=== PATIENT | female | born 1960 | race Caucasian/White ===

== ENCOUNTER → 2016-09-15 | Outpatient (CLI) | payer OTHER ==
[2016-09-15 10:26] LABS: ALT 32 U/L (9-52); AST 21 U/L (14-36); Alkaline Phosphatase 113 U/L (38-126); Anion Gap 12 mmol/L; Blood Urea Nitrogen 11 mg/dL (7-17); Calcium 9.8 mg/dL (8.4-10.2); Carbon Dioxide 28 mmol/L (22-30); Chloride 103 mmol/L (98-107); Cholesterol 158 mg/dL (<200); Glucose 131 mg/dL (74-99); HDL Cholesterol 60 mg/dL (40-60); Non-African American GFR(MDRD) >60 (>60 ml/min/1.73 sqM); Potassium 4.5 mmol/L (3.5-5.1); Sodium 143 mmol/L (137-145); Total Bilirubin 0.5 mg/dL (0.2-1.3); Total Protein 6.9 g/dL (6.3-8.2); Triglycerides 195 mg/dL (<150)
[2016-09-15 10:50] LABS: Hemoglobin A1C 6.3 % (4.2-6.1)
== END | disposition home or self-care (01) ==
LOC: LABWHC1 09:35
PROVIDERS: ATTEND Psychiatry & Neurology Psychiatry
DX: E11.9 Type 2 diabetes mellitus without complications (principal)
CPT/HCPCS: 36415; 80053; 80061; 82043; 83036; 84439; 84443

== ENCOUNTER → 2017-03-18 | Outpatient (CLI) | payer OTHER ==
[2017-03-18 18:27] LABS: ALT 32 U/L (9-52); AST 21 U/L (14-36); Alkaline Phosphatase 111 U/L (38-126); Anion Gap 13 mmol/L; Blood Urea Nitrogen 13 mg/dL (7-17); Calcium 9.7 mg/dL (8.4-10.2); Carbon Dioxide 25 mmol/L (22-30); Chloride 105 mmol/L (98-107); Cholesterol 186 mg/dL (<200); Glucose 82 mg/dL (74-99); HDL Cholesterol 57 mg/dL (40-60); Non-African American GFR(MDRD) >60 (>60 ml/min/1.73 sqM); Potassium 4.5 mmol/L (3.5-5.1); Sodium 143 mmol/L (137-145); Total Bilirubin 0.3 mg/dL (0.2-1.3); Total Protein 6.8 g/dL (6.3-8.2); Triglycerides 235 mg/dL (<150)
[2017-03-18 21:05] LABS: Hemoglobin A1C 6.1 % (4.2-6.1)
== END ==
LOC: MMGSC 10:15
PROVIDERS: ATTEND Family Medicine
DX: E11.9 Type 2 diabetes mellitus without complications (principal); E03.9 Hypothyroidism, unspecified; E78.5 Hyperlipidemia, unspecified
CPT/HCPCS: 36415; 80053; 80061; 82043; 82570; 83036; 84439; 84443; 84480

== ENCOUNTER → 2017-09-10 | Outpatient (CLI) | payer OTHER ==
[2017-09-10 20:03] LABS: Basophils # (A) 0.1 k/uL (0-0.2); Basophils % (A) 1 %; Eosinophils # (A) 0.5 k/uL (0-0.7); Eosinophils % (A) 5 %; HCT 40.9 % (34.0-46.0); HGB 13.1 gm/dL (11.4-16.0); Lymphocytes # (A) 3.8 k/uL (1.0-4.8); Lymphocytes % (A) 39 %; MCH 28.2 pg (25.0-35.0); MCHC 32.1 g/dL (31.0-37.0); MCV 88.1 fL (80.0-100.0); Mean Platelet Volume 7.9; Monocytes # (A) 0.4 k/uL (0-1.0); Monocytes % (A) 4 %; Neutrophils # (A) 4.9 k/uL (1.3-7.7); Neutrophils % (A) 50 %; Platelet Count 486 k/uL (150-450); RBC 4.65 m/uL (3.80-5.40); RDW 13.9 % (11.5-15.5); WBC 9.7 k/uL (3.8-10.6)
[2017-09-10 20:21] LABS: ALT 35 U/L (9-52); AST 23 U/L (14-36); Albumin 4.3 g/dL (3.5-5.0); Alkaline Phosphatase 124 U/L (38-126); Anion Gap 12 mmol/L; Blood Urea Nitrogen 17 mg/dL (7-17); Calcium 9.7 mg/dL (8.4-10.2); Carbon Dioxide 27 mmol/L (22-30); Chloride 104 mmol/L (98-107); Cholesterol 180 mg/dL (<200); Glucose 105 mg/dL (74-99); HDL Cholesterol 58 mg/dL (40-60); LDL Cholesterol,Calculated 82 mg/dL (0-99); Potassium 5.1 mmol/L (3.5-5.1); Sodium 143 mmol/L (137-145); Total Bilirubin 0.3 mg/dL (0.2-1.3); Triglycerides 198 mg/dL (<150)
[2017-09-10 20:29] LABS: T4, Free (Free Thyroxine) 1.16 ng/dL (0.78-2.19)
[2017-09-11 02:16] LABS: Hemoglobin A1C 6.3 % (4.0-6.0)
== END | disposition home or self-care (01) ==
LOC: MMGSC 11:45
PROVIDERS: ATTEND Family Medicine
DX: E03.9 Hypothyroidism, unspecified (principal); E78.5 Hyperlipidemia, unspecified; E11.9 Type 2 diabetes mellitus without complications
CPT/HCPCS: 36415; 80053; 80061; 83036; 84439; 84443; 85025

== ENCOUNTER → 2017-09-16 | Outpatient (CLI) | payer OTHER | END | disposition home or self-care (01) | LOC: MMGSC 10:48 | PROVIDERS: ATTEND Family Medicine | DX: E11.9 Type 2 diabetes mellitus without complications (principal) | CPT/HCPCS: 82043; 82570 ==

== ENCOUNTER → 2020-07-03 | Outpatient (CLI) | payer BC ==
--- NOTE | 2020-07-03 14:47 | US ---
EXAMINATION TYPE: US kidneys/renal and bladder DATE OF EXAM: 07/03/2020 COMPARISON: NONE CLINICAL HISTORY: 59-year-old female R33.9 Urinary retention. TECHNIQUE: Multiple sonographic images of the kidneys and bladder are obtained. FINDINGS: EXAM MEASUREMENTS: Right Kidney: 11.4 x 4.7 x 3.4 cm Left Kidney: 12.0 x 4.3 x5.3 cm Post Void Residual Volume: 7.4 mL Right Kidney: No hydronephrosis. Left Kidney: Multiple echogenic parallel linear calcifications suggest vessel wall calcifications. No hydronephrosis. Bladder: well distended with mild circumferential wall thickening. Bilateral Jets seen: Yes Normal Post Void Residual: yes Incidental echogenic liver. IMPRESSION: 1. No hydronephrosis. 2. Circumferential bladder wall thickening. Correlate to exclude cystitis. 3. Incidental hepatic steatosis. 4. Increased postvoid bladder volume of 7 mL falls within acceptable limits.
== END | disposition home or self-care (01) ==
LOC: RADUSWWP 13:36
PROVIDERS: ATTEND Family Medicine
DX: N28.9 Disorder of kidney and ureter, unspecified (principal)
CPT/HCPCS: 76770

== ENCOUNTER → 2020-07-17 | Outpatient (CLI) | payer BC ==
--- NOTE | 2020-07-30 12:24 | EM ---
EVENT MONITOR EVENT MONITOR: Patient was monitored between the July 17 and July 24, 2020. The rhythm strip revealed sinus mechanism with normal conduction. There was no evidence of atrial fibrillation. No evidence of ventricular ectopic activity or pauses. PAWEL / BLOSSOMN: [id number] /
== END | disposition home or self-care (01) ==
LOC: RADECHMAIN 12:20
PROVIDERS: ATTEND Family Medicine
DX: R00.2 Palpitations (principal)
CPT/HCPCS: 93270

== ENCOUNTER → 2020-07-18 | Outpatient (CLI) | payer BC ==
--- NOTE | 2020-07-19 09:27 | MM ---
Reason for exam: screening (asymptomatic). Last mammogram was performed 9 years and 3 months ago. History: Patient is postmenopausal. Took hormonal contraceptives for 1 year beginning at age 18. Physical Findings: A clinical breast exam by your physician is recommended on an annual basis and results should be correlated with mammographic findings. MG Screening Mammo w CAD Bilateral CC and MLO view(s) were taken. Prior study comparison: April 17, 2011, [facility] DIGITAL RIGHT MAMMOGRAM w/CAD. April 10, 2011, bilateral digital screening mammo w/CAD. There are scattered fibroglandular densities. No significant changes when compared with prior studies. ASSESSMENT: Benign, BI-RAD 2 RECOMMENDATION: Routine screening mammogram of both breasts in 1 year.
== END | disposition home or self-care (01) ==
LOC: RADMAMWWP 15:10
PROVIDERS: ATTEND Family Medicine
DX: Z12.31 Encounter for screening mammogram for malignant neoplasm of breast (principal)
CPT/HCPCS: 77067

== ENCOUNTER 2021-05-29 07:13 | Day surgery (SDC) | payer BC ==
[~2021-05-29 07:13] MED LIST: LACTATED RINGERS 1,000 ML IV SCH; LIDOCAINE 1% (10MG/ML) FOR IV START INTRADERMA PRN
[2021-05-29 07:38] VITALS: TEMP 97
[2021-05-29 07:46] LABS: Glucose,Whole Blood 158 mg/dL (75-99)
[2021-05-29] MEDS ORDERED: PROPOFOL 10 MG/ML 20 ML VIAL IV ONE (07:57)
[2021-05-29] MEDS ORDERED: LIDOCAINE 1% INJ 10MG/ML (20 ML MDV) ONE (07:57)
--- NOTE | 2021-05-29 08:25 | P.PCN ---
Date of Procedure: 05/29/21 Procedure(s) Performed: BRIEF HISTORY: Patient is a 60-year-old pleasant female scheduled for an elective colonoscopy as a part of screening for colon rectal neoplasia. Her last colonoscopy was 10 years ago. PROCEDURE PERFORMED: Colonoscopy with biopsy. PREOPERATIVE DIAGNOSIS: Screening for colon cancer. IV sedation per Anesthesia. PROCEDURE: After informed consent was obtained, the patient, was brought into the endoscopy unit. IV sedation was administered by Anesthesia under continuous monitoring. Digital rectal examination was normal. Initially the Olympus CF-160 flexible video colonoscope was then inserted in the rectum, gradually advanced into the cecum without any difficulty. Careful examination was performed as the scope was gradually being withdrawn. Ileocecal valve and the appendiceal orifice were visualized and appeared normal. Prep was excellent. Mucosa of the cecum, ascending colon, transverse colon, appeared normal. In the descending colon there was a 3-4 mm sessile polyp that was removed by cold biopsy. Rest of the descending colon, sigmoid colon, and rectum appeared normal. Retroflexion was performed in the rectum and no lesions were seen. The patient tolerated the procedure well. IMPRESSION: 3-4 mm descending colon polyp status post cold biopsy Rest of the colon appeared normal RECOMMENDATIONS: Findings of this examination were discussed with the patient as well as a family. She was advised to follow with the biopsy results. If the biopsies adenoma she can have a repeat colonoscopy in 5 years.
[2021-05-29 08:29] VITALS: RESP 16
[2021-05-29 08:41] VITALS: BP 112/77; PULSE 72
== END 2021-05-29 08:59 | disposition home or self-care (01) ==
LOC: ORWHC2ENDO 07:13
PROVIDERS: ATTEND Internal Medicine Gastroenterology
DX: Z12.11 Encounter for screening for malignant neoplasm of colon (principal); D12.4 Benign neoplasm of descending colon; E78.5 Hyperlipidemia, unspecified; E11.9 Type 2 diabetes mellitus without complications; E03.9 Hypothyroidism, unspecified; F98.8 Other specified behavioral and emotional disorders with onset usually occurring in childhood and adolescence; F32.9 Major depressive disorder, single episode, unspecified; Z79.890 Hormone replacement therapy; Z79.84 Long term (current) use of oral hypoglycemic drugs; Z79.899 Other long term (current) drug therapy
CPT/HCPCS: 45380; J2001; J2704; 88305

== ENCOUNTER → 2021-06-17 | Outpatient (CLI) | payer BC | END | disposition home or self-care (01) | LOC: LABWHC1 14:30 | PROVIDERS: ATTEND Family Medicine | DX: U07.1 COVID-19 (principal); R51.9 Headache, unspecified; R50.9 Fever, unspecified; R05.9 Cough, unspecified | CPT/HCPCS: U0003; U0005 ==

== ENCOUNTER 2021-06-23 18:50 | Inpatient (IN) | payer BC ==
--- NOTE | 2021-06-23 20:40 | XR ---
EXAMINATION TYPE: XR chest 2V DATE OF EXAM: 06/23/2021 COMPARISON: NONE HISTORY: Short of breath. Fever. TECHNIQUE: 2 views FINDINGS: There is patchy peripheral bilateral pulmonary interstitial and airspace infiltrates. Heart and mediastinum are normal. There is no pleural effusion. There are no hilar masses. IMPRESSION: Bilateral pneumonia. Normal heart.
[2021-06-23] MEDS ORDERED: ALBUTEROL HFA INHALER INHALATION STA (22:08)
[2021-06-23] MEDS ORDERED: ACETAMINOPHEN TAB 500 MG TAB PO STA (22:08)
[2021-06-23] MEDS ORDERED: DEXAMETHASONE SOD PHOSPHATE 10 MG/ML 1 ML VIAL IVP STA (22:09)
[2021-06-23] MEDS ORDERED: KETOROLAC 15 MG/ML 1 ML VIAL IVP STA (22:09)
[2021-06-23] MEDS ORDERED: SODIUM CHLORIDE 0.9% 1,000 ML IV STA ×2 (22:09)
--- NOTE | 2021-06-23 22:10 | ED ---
Recheck HPI - General Chief Complaint: Shortness of Breath Stated Complaint: covid+/sob/fever/diarrhea Time Seen by Provider: 06/23/21 22:06 Source: patient, RN notes reviewed, old records reviewed Mode of arrival: ambulatory Limitations: no limitations - History of Present Illness Initial Comments: This is a 60-year-old female to the emergency department breanna. Patient presents today for evaluation regards to coronavirus. Patient does suffer from asthma high blood pressure. Patient states she was diagnosed with coronavirus on Thursday 10 days currently. Patient has been on quarantined, was taken home pulse ox at home and noticed it started to trend lower. Patient states she does admit to shortness of breath especially with exertion. No chest MD Complaint: abnormal lab (Positive for coronavirus) -: days(s) (10) Returns Today for: Called Because of Abnormal Lab/Test, persistent/worsening pain related to initial visit, other (Worsening shortness of breath) Symptoms Since Prior Visit: worsening pain, fever Context: called for abnormal lab result, ran out of medication, other (Increasing shortness of breath) Associated Symptoms: fever, chills Treatments Prior to Arrival: other (none) - Related Data Home Medications Medication Instructions Recorded Confirmed ALPRAZolam [Xanax] 0.5 mg PO BID PRN 05/27/21 05/29/21 ARIPiprazole [Abilify] 10 mg PO HS 05/27/21 05/29/21 Atorvastatin [Lipitor] 5 mg PO MOTUWETHFR 05/27/21 05/29/21 Cholecalciferol [Vitamin D3 (25 50 mcg PO DAILY 05/27/21 05/29/21 Mcg = 1000 Iu)] Cinnamon Bark [Cinnamon] 1 tab PO TID 05/27/21 05/29/21 Dextroamphetamine/Amphetamine 15 mg PO QAM 05/27/21 05/29/21 [Dextroamphetamine/Amphetamine ER 15 mg Cap] Latanoprost Ophth [Xalatan 0.005%] 1 drop BOTH EYES DAILY 05/27/21 05/29/21 Levothyroxine Sodium [Synthroid] 75 mcg PO QAM 05/27/21 05/29/21 Loratadine 10 mg PO HS 05/27/21 05/29/21 Multivitamins, Thera [Multivitamin 1 tab PO DAILY 05/27/21 05/29/21 (formulary)] Prevagen 1 tab PO DAILY 05/27/21 05/29/21 Ubidecarenone [Co Q-10] 200 mg PO DAILY 05/27/21 05/29/21 Zinc 50 mg PO DAILY 05/27/21 05/29/21 Zolpidem [Ambien] 10 mg PO HS PRN 05/27/21 05/29/21 glyBURIDE [Diabeta] 2.5 mg PO BID 05/27/21 05/29/21 metFORMIN HCL [Glucophage] 1,000 mg PO BID 05/27/21 05/29/21 Allergies Allergy/AdvReac Type Severity Reaction Status Date / Time No Known Allergies Allergy Verified 06/23/21 19:58 Review of Systems ROS Statement: Those systems with pertinent positive or pertinent negative responses have been documented in the HPI. ROS Other: All systems not noted in ROS Statement are negative. Past Medical History Past Medical History: Diabetes Mellitus, Hyperlipidemia, Thyroid Disorder Additional Past Medical History / Comment(s): ALLERGIES History of Any Multi-Drug Resistant Organisms: None Reported Past Surgical History: Appendectomy Additional Past Surgical History / Comment(s): OVARIAN CYST Past Anesthesia/Blood Transfusion Reactions: No Reported Reaction Past Psychological History: ADD/ADHD, Depression Smoking Status: Former smoker Past Alcohol Use History: Rare Past Drug Use History: None Reported - Past Family History Mother Family Medical History: No Reported History Additional Family Medical History / Comment(s): PATIENT WAS ADOPTED General Exam Limitations: no limitations General appearance: alert, in no apparent distress, anxious Head exam: Present: atraumatic, normocephalic, normal inspection Eye exam: Present: normal appearance, PERRL, EOMI. Absent: scleral icterus, conjunctival injection, periorbital swelling ENT exam: Present: normal exam, mucous membranes moist Neck exam: Present: normal inspection. Absent: tenderness, meningismus, lymphadenopathy Respiratory exam: Present: respiratory distress, accessory muscle use, decreased breath sounds, prolonged expiratory. Absent: wheezes, rales, rhonchi, stridor Cardiovascular Exam: Present: regular rate, normal rhythm, normal heart sounds. Absent: systolic murmur, diastolic murmur, rubs, gallop, clicks GI/Abdominal exam: Present: soft, normal bowel sounds. Absent: distended, tenderness, guarding, rebound, rigid Extremities exam: Present: normal inspection, full ROM, normal capillary refill. Absent: tenderness, pedal edema, joint swelling, calf tenderness Back exam: Present: normal inspection Neurological exam: Present: alert, oriented X3, CN II-XII intact Psychiatric exam: Present: normal affect, normal mood Skin exam: Present: warm, dry, intact, normal color. Absent: rash Course Vital Signs 06/23/21 06/23/21 06/23/21 19:53 20:01 22:37 Temperature 97.5 F L Pulse Rate 97 Respiratory 24 18 Rate Blood Pressure 109/73 O2 Sat by Pulse 86 L 93 L Oximetry - Reevaluation(s) Reevaluation #1: 06/23/21 22:59 Medical record is reviewed Reevaluation #2: 06/23/21 22:59 Patient continues to low have low pulse ox will not on supplemental oxygen here in the ER Reevaluation #3: 06/23/21 23:00 paatient is informed of results and questions are answered - Consultations Consultation #1: Spoke with sound who will admit this patient Medical Decision Making - Medical Decision Making 60 female to the emergency department for reevaluation of positive coronavirus test worsening shortness of breath and low oxygen today. Patient has chest x- ray showing bilateral pneumonia coronavirus pneumonia, computed tomography scan is obtained to rule out PE, patient is improving with supplemental O2 but does not maintain pulse ox without Critical Care Time Critical Care Time: Yes Total Critical Care Time: 31 Disposition Clinical Impression: Hypoxia, Coronavirus infection, Pneumonia due to COVID-19 virus Disposition: ADMITTED IP TO THIS HOSP Condition: Fair Is patient prescribed a controlled substance at d/c from ED?: No Referrals: Johanna Hahn MD [Primary Care Provider] - 1-2 days
[2021-06-23] MEDS ORDERED: NALOXONE 0.4 MG/ML 1 ML VIAL IV PRN (23:18)
[2021-06-23] MEDS ORDERED: MORPHINE SULFATE 4 MG/ML SYRINGE IV PRN (23:18)
[2021-06-23] MEDS ORDERED: ONDANSETRON 4 MG/2 ML VIAL IVP PRN (23:18)
[2021-06-23 23:51] LABS: Basophils % (A) 1 %; Eosinophils % (A) 0 %; HCT 37.8 % (34.0-46.0); HGB 12.9 gm/dL (11.4-16.0); Lymphocytes # (A) 1.7 k/uL (1.0-4.8); Lymphocytes % (A) 26 %; MCH 30.4 pg (25.0-35.0); MCV 89.3 fL (80.0-100.0); Mean Platelet Volume 7.4; Monocytes # (A) 0.1 k/uL (0-1.0); Monocytes % (A) 2 %; Neutrophils # (A) 4.5 k/uL (1.3-7.7); Neutrophils % (A) 69 %; Platelet Count 324 k/uL (150-450); RBC 4.24 m/uL (3.80-5.40); RDW 13.6 % (11.5-15.5); WBC 6.5 k/uL (3.8-10.6)
[2021-06-24 00:02] LABS: INR 0.9 (<1.2); Prothrombin Time 9.7 sec (9.0-12.0)
[2021-06-24 00:08] LABS: ALT 76 U/L (4-34); AST 113 U/L (14-36); African American GFR (CKD) >90 (>60 ml/min/1.73 sqM); Albumin 3.9 g/dL (3.5-5.0); Alkaline Phosphatase 147 U/L (38-126); Anion Gap 11 mmol/L; Blood Urea Nitrogen 15 mg/dL (7-17); Calcium 8.9 mg/dL (8.4-10.2); Carbon Dioxide 21 mmol/L (22-30); Chloride 103 mmol/L (98-107); Glucose 151 mg/dL (74-99); Magnesium 2.2 mg/dL (1.6-2.3); Non-African American GFR(CKD) >90 (>60 ml/min/1.73 sqM); Sodium 135 mmol/L (137-145); Total Bilirubin 0.5 mg/dL (0.2-1.3)
[2021-06-24 00:18] LABS: LDH 2353 U/L (313-618); Potassium 5.8 mmol/L (3.5-5.1)
[2021-06-24 00:19] LABS: C Reactive Protein 23.9 mg/dL (<1.0)
--- NOTE | 2021-06-24 00:46 | CT ---
EXAMINATION TYPE: CT angio chest DATE OF EXAM: 06/24/2021 COMPARISON: None HISTORY: pe CT DLP: 280 mGycm Automated exposure control for dose reduction was used. CONTRAST: Performed with IV Contrast, patient injected with 55ml mL of Isovue 370. There are 3-D post processed images. There is extensive groundglass peripheral pulmonary interstitial infiltrates. There is some coalescen t density small areas of both lungs. There is no pleural effusion. Heart size is normal. There is no pericardial effusion. There is some fatty infiltration of the liver. There are no hilar masses. There is 1.6 cm pretracheal lymph node. There are other mediastinal lymph nodes that measure up to 1 cm. Thoracic aorta appears intact. There is no aneurysm or dissection. The re is no evidence of filling defect in the pulmonary arteries. Thoracic spine is intact. There is no compression fracture. The ribs appear intact. IMPRESSION: No evidence of pulmonary embolism. Extensive bilateral interstitial pneumonia. Mild mediastinal adenopathy.
[2021-06-24 03:00] LABS: Basophils % (A) 0 %; Eosinophils % (A) 0 %; HCT 35.6 % (34.0-46.0); HGB 11.9 gm/dL (11.4-16.0); Lymphocytes % (A) 12 %; MCH 30.2 pg (25.0-35.0); MCHC 33.4 g/dL (31.0-37.0); MCV 90.2 fL (80.0-100.0); Mean Platelet Volume 7.3; Monocytes # (A) 0.1 k/uL (0-1.0); Monocytes % (A) 2 %; Neutrophils # (A) 6.9 k/uL (1.3-7.7); Neutrophils % (A) 84 %; Platelet Count 353 k/uL (150-450); RBC 3.95 m/uL (3.80-5.40); RDW 13.8 % (11.5-15.5); WBC 8.2 k/uL (3.8-10.6)
[2021-06-24 03:13] LABS: ALT 61 U/L (4-34); AST 80 U/L (14-36); African American GFR (CKD) >90 (>60 ml/min/1.73 sqM); Albumin 3.2 g/dL (3.5-5.0); Alkaline Phosphatase 137 U/L (38-126); Anion Gap 9 mmol/L; Blood Urea Nitrogen 15 mg/dL (7-17); Calcium 8.1 mg/dL (8.4-10.2); Carbon Dioxide 20 mmol/L (22-30); Chloride 106 mmol/L (98-107); Glucose 184 mg/dL (74-99); Non-African American GFR(CKD) >90 (>60 ml/min/1.73 sqM); Potassium 4.6 mmol/L (3.5-5.1); Sodium 135 mmol/L (137-145); Total Bilirubin 0.2 mg/dL (0.2-1.3); Total Protein 5.9 g/dL (6.3-8.2)
[2021-06-24] MEDS ORDERED: ACETAMINOPHEN TAB 325 MG TAB PO PRN (04:19)
--- NOTE | 2021-06-24 04:27 | P.HPIM ---
History of Present Illness H&P Date: 06/24/21 Chief Complaint: Hypoxemia 60-year-old female with diabetes mellitus and mild persistent asthma Patient comes in due to progressive shortness of breath and hypoxemia. She was diagnosed with Covid 10 days ago she is unvaccinated. Overall she was doing well up until recently she's been having fevers off and on with some chills and body aches however she started having progressive worsening of her coughing and some wheezing over the past few days she's been monitoring her oxygen saturation with a home pulse ox which has been within normal limits trending down into the lower 90s up until today when it was in the 80s and she was feeling short of breath. She does not recall any sick contacts. No recent travel. She otherwise denies any sore throat loss of taste or smell sensation she denies any vomiting or nausea. However she does have some episodes of diarrhea Again up until yesterday is when her oxygen saturation started trending down to lower 90s and today she was and TEDs with worsening shortness of breath especially with activity. She decided to come to the hospital for evaluation She's been self-medicating with Tylenol and Advil and using her inhalers however to not much benefit today. She does not use any home oxygen she denies any smoking or drug abuse In the ED workup showed elevated liver enzymes elevated CRP and lactate dehydrogenase CTA of the chest showed no acute PE but was positive for bilateral interstitial pneumonitis patient was started on supplemental oxygen and given a dose of dexamethasone in the ED Review of Systems Pertinent positives as noted in HPI. All other systems were reviewed and are negative Past Medical History Past Medical History: Diabetes Mellitus, Hyperlipidemia, Thyroid Disorder Additional Past Medical History / Comment(s): ALLERGIES History of Any Multi-Drug Resistant Organisms: None Reported Past Surgical History: Appendectomy Additional Past Surgical History / Comment(s): OVARIAN CYST Past Anesthesia/Blood Transfusion Reactions: No Reported Reaction Past Psychological History: ADD/ADHD, Depression Smoking Status: Former smoker Past Alcohol Use History: Rare Past Drug Use History: None Reported - Past Family History Mother Family Medical History: No Reported History Additional Family Medical History / Comment(s): PATIENT WAS ADOPTED Medications and Allergies Home Medications Medication Instructions Recorded Confirmed Type ALPRAZolam [Xanax] 0.5 mg PO DIRECTED PRN 05/27/21 06/23/21 History ARIPiprazole [Abilify] 10 mg PO HS 05/27/21 06/23/21 History Dextroamphetamine/Amphetamine 15 mg PO QAM 05/27/21 06/23/21 History [Dextroamphetamine/Amphetamine ER 15 mg Cap] Latanoprost Ophth [Xalatan 0.005%] 1 drop BOTH EYES HS 05/27/21 06/23/21 History Levothyroxine Sodium [Synthroid] 75 mcg PO MOTUWETHFR 05/27/21 06/23/21 History Loratadine 10 mg PO HS 05/27/21 06/23/21 History Ubidecarenone [Co Q-10] 100 mg PO DAILY 05/27/21 06/23/21 History Zolpidem [Ambien] 10 mg PO HS PRN 05/27/21 06/23/21 History glyBURIDE [Diabeta] 5 mg PO BID 05/27/21 06/23/21 History metFORMIN HCL [Glucophage] 1,000 mg PO DAILY 05/27/21 06/23/21 History Atorvastatin [Lipitor] 10 mg PO HS 06/23/21 06/23/21 History Cholecalciferol [Vitamin D3 (25 50 mcg PO DAILY 06/23/21 06/23/21 History Mcg = 1000 Iu)] DULoxetine HCL [Cymbalta] 30 mg PO DIRECTED 06/23/21 06/23/21 History Allergies Allergy/AdvReac Type Severity Reaction Status Date / Time No Known Allergies Allergy Verified 06/23/21 19:58 Physical Exam Vitals: Vital Signs Temp Pulse Resp BP Pulse Ox 06/24/21 00:17 93 L 06/23/21 22:37 18 06/23/21 20:01 93 L 06/23/21 19:53 97.5 F L 97 24 109/73 86 L Intake and Output 06/23/21 06/23/21 06/24/21 14:59 22:59 06:59 Other: Weight 80.286 kg Constitutional: No acute distress, conversant, pleasant Eyes: Anicteric sclerae, moist conjunctiva, Pupils equal round reactive to light ENMT: NC/AT Oropharynx clear, no erythema, or exudates Neck: Supple, FROM, no masses, or JVD No carotid bruits No thyromegaly Lungs: Clear to auscultation Clear to percussion Normal respiratory effort, no accessory muscle use Cardiovascular: Heart regular in rate and rhythm, No murmurs, gallops, or rubs No peripheral edema Abdominal: Soft Nontender, no guarding, rebound or rigidity Abdomen moving with respiration Normoactive bowel sounds No hepatomegaly, No splenomegaly No palpable mass No abdominal wall hernia noted Skin: Normal temperature, tone, texture, turgor No induration No subcutaneous nodules No rash, lesions No ulcers Extremities: No digital cyanosis No clubbing Pedal pulses intact and symmetrical Radial pulses intact and symmetrical No calf tenderness Psychiatric: Alert and oriented to person, place and time Appropriate affect fair judgement Neuro Muscles Strength 5/5 in all 4 extremities Sensation to light touch grossly present throughout Cranial nerves II-XII grossly intact No focal sensory deficits Lymphatics: no palpable cervical or supraclavicular , or inguinal lymph nodes Results CBC & Chem 7: 06/24/21 02:35 06/24/21 02:35 Labs: Abnormal Lab Results - Last 24 Hours (Table) 06/23/21 06/24/21 Range/Units 23:40 02:35 Sodium 135 L 135 L (137-145) mmol/L Potassium 5.8 H (3.5-5.1) mmol/L Carbon Dioxide 21 L 20 L (22-30) mmol/L Glucose 151 H 184 H (74-99) mg/dL Calcium 8.1 L (8.4-10.2) mg/dL AST 113 H 80 H (14-36) U/L ALT 76 H 61 H (4-34) U/L Alkaline Phosphatase 147 H 137 H (38-126) U/L Lactate Dehydrogenase 2353 H (313-618) U/L C-Reactive Protein 23.9 H (<1.0) mg/dL Total Protein 5.9 L (6.3-8.2) g/dL Albumin 3.2 L (3.5-5.0) g/dL Assessment and Plan Assessment: Acute hypoxic respiratory failure Acute Covid pneumonitis Mild persistent asthma Supplemental oxygen as needed Check CRP, LDH, pro calcitonin, d-dimer, ferritin, CK, troponins, which is of prognostic value Lovenox subcu daily Dexamethasone 6 mg IV push daily Pulmonary consult Breathing treatments and inhalers as needed Contact and droplet precautions Monitor vital signs Follow-up cultures Diabetes mellitus Hold oral hypoglycemic agents Start patient on insulin sliding scale Slightly elevated liver enzymes Hold statin Continue to monitor Hypothyroid Resume levothyroxine Patient is full code Anticipated length of stay more than 2 midnights Anticipated discharge pending clinical course
[2021-06-24] MEDS: ALBUTEROL HFA INHALER INHALATION SCH ×4 (07:35→20:06)
[2021-06-24 08:15] LABS: Glucose,Whole Blood 222 mg/dL (75-99)
[2021-06-24] MEDS: DEXAMETHASONE SOD PHOSPHATE 10 MG/ML 1 ML VIAL IVP SCH (08:42)
[2021-06-24] MEDS: LEVOTHYROXINE 75 MCG TAB PO SCH (08:42)
[2021-06-24] MEDS: ENOXAPARIN 40 MG/0.4 ML SYRINGE SQ SCH (08:43)
[2021-06-24] MEDS: INSULIN ASPART (NovoLOG) 100 UNIT/ML VIAL SQ SCH ×4 (08:43→21:36)
[2021-06-24] MEDS: PANTOPRAZOLE 40 MG TABLET PO SCH (08:43)
[2021-06-24] MEDS ORDERED: PANTOPRAZOLE 40 MG/10 ML VIAL IV SCH (09:00)
[2021-06-24 12:21] LABS: Glucose,Whole Blood 437 mg/dL (75-99)
--- NOTE | 2021-06-24 12:41 | US ---
EXAMINATION TYPE: US venous doppler duplex LE DATE OF EXAM: 06/24/2021 12:14 PM COMPARISON: NONE CLINICAL HISTORY: elevated d-dimer. covid +, SOB SIDE PERFORMED: Bilateral TECHNIQUE: The lower extremity deep venous system is examined utilizing real time linear array sonog bar with graded compression, doppler sonography and color-flow sonography. VESSELS IMAGED: Common Femoral Vein Deep Femoral Vein Greater Saphenous Vein * Femoral Vein Popliteal Vein Small Saphenous Vein * Proximal Calf Veins (* superficial vessels) There is normal flow, compressibility, vascular waveforms. Right Leg: Negative for DVT Left Leg: Negative for DVT IMPRESSION: No evidence of venous thrombosis within the lower extremities from the level of the knees centrally
[2021-06-24] MEDS: BARICITINIB 2 MG TABLET PO SCH (13:05)
--- NOTE | 2021-06-24 14:18 | P.CNPUL ---
History of Present Illness Consult date: 06/24/21 Requesting physician: Chriss Aguirre Reason for consult: dyspnea, cough, hypoxemia, pneumonia, abnormal CXR/CT Chief complaint: Dyspnea, fever, shortness of breath History of present illness: 60-year-old white female patient with past medical history of diabetes mellitus type 2, hyperlipidemia, hypothyroidism, depression, ADHD, former smoker, who came into the emergency department on 9 06/23/2021 for evaluation of fever, cough, and worsening shortness of breath, and the onset of symptoms was 2 weeks ago. Patient also reports some episodes of diarrhea. She was diagnosed with COVID-19 on Thursday, around 06/14/2021. Denies any chest pain, her cough is dry, nonproductive, patient is not vaccinated for COVID 19. Chest x-ray shows bilateral patchy peripheral interstitial and airspace infiltrates. Admission labs have been reviewed, showing CBC within normal limits, d-dimer came back elevated at 7.39, sodium was 135, potassium is 5.8, chloride was 103, CO2 is 21, BUN is 15, creatinine 0.6, LDH was 2353, and CRP was 23.9. Patient also had elevation of her liver enzymes with AST of 113, ALT of 76, and alkaline phosphatase was 147. She was started on prophylactic anticoagulation with Lovenox, and Decadron 6 mg daily. At the time of our evaluation patient is already on 100% nonrebreather mask and her pulse ox is 94-97%. She has been afebrile while in the hospital. CT angiogram of the chest showed no evidence of pulmonary embolism, bilateral lower extremity Dopplers showed no evidence of DVT. Review of Systems All systems: negative Constitutional: Reports weakness, Denies chills, Denies fever Eyes: denies blurred vision, denies pain Ears, nose, mouth and throat: Denies headache, Denies sore throat Cardiovascular: Denies chest pain, Denies shortness of breath Respiratory: Reports cough, Reports dyspnea Gastrointestinal: Denies abdominal pain, Denies diarrhea, Denies nausea, Denies vomiting Genitourinary: Denies dysuria, Denies hematuria Musculoskeletal: Denies myalgias Integumentary: Denies pruritus, Denies rash Neurological: Denies numbness, Denies weakness Psychiatric: Denies anxiety, Denies depression Endocrine: Denies fatigue, Denies weight change Past Medical History Past Medical History: Diabetes Mellitus, Hyperlipidemia, Thyroid Disorder Additional Past Medical History / Comment(s): ALLERGIES History of Any Multi-Drug Resistant Organisms: None Reported Past Surgical History: Appendectomy Additional Past Surgical History / Comment(s): OVARIAN CYST Past Anesthesia/Blood Transfusion Reactions: No Reported Reaction Past Psychological History: ADD/ADHD, Depression Smoking Status: Former smoker Past Alcohol Use History: Rare Past Drug Use History: None Reported - Past Family History Mother Family Medical History: No Reported History Additional Family Medical History / Comment(s): PATIENT WAS ADOPTED Medications and Allergies Home Medications Medication Instructions Recorded Confirmed Type ALPRAZolam [Xanax] 0.5 mg PO DAILY PRN 05/27/21 06/24/21 History ARIPiprazole [Abilify] 10 mg PO HS 05/27/21 06/23/21 History Dextroamphetamine/Amphetamine 15 mg PO QAM 05/27/21 06/23/21 History [Dextroamphetamine/Amphetamine ER 15 mg Cap] Latanoprost Ophth [Xalatan 0.005%] 1 drop BOTH EYES HS 05/27/21 06/23/21 History Levothyroxine Sodium [Synthroid] 75 mcg PO MOTUWETHFR 05/27/21 06/23/21 History Loratadine 10 mg PO HS 05/27/21 06/23/21 History Ubidecarenone [Co Q-10] 100 mg PO DAILY 05/27/21 06/23/21 History Zolpidem [Ambien] 10 mg PO HS PRN 05/27/21 06/23/21 History glyBURIDE [Diabeta] 5 mg PO BID 05/27/21 06/23/21 History metFORMIN HCL [Glucophage] 1,000 mg PO DAILY 05/27/21 06/23/21 History Atorvastatin [Lipitor] 10 mg PO HS 06/23/21 06/23/21 History Cholecalciferol [Vitamin D3 (25 50 mcg PO DAILY 06/23/21 06/23/21 History Mcg = 1000 Iu)] DULoxetine HCL [Cymbalta] 30 mg PO DAILY 06/23/21 06/24/21 History Allergies Allergy/AdvReac Type Severity Reaction Status Date / Time No Known Allergies Allergy Verified 06/23/21 19:58 Physical Exam Vitals: Vital Signs Temp Pulse Resp BP Pulse Ox 06/24/21 13:28 76 22 110/60 97 06/24/21 12:13 94 L 06/24/21 08:09 63 18 111/63 98 06/24/21 07:00 58 L 24 104/60 95 06/24/21 06:00 61 25 H 95 06/24/21 05:00 65 20 104/60 97 06/24/21 04:00 69 28 H 90 L 06/24/21 03:00 74 17 86 L 06/24/21 02:00 80 16 91 L 06/24/21 01:00 80 18 108/66 96 06/24/21 00:48 95 06/24/21 00:17 93 L 06/23/21 22:37 18 06/23/21 20:01 93 L 06/23/21 19:53 97.5 F L 97 24 109/73 86 L Intake and Output 06/23/21 06/24/21 06/24/21 22:59 06:59 14:59 Other: Weight 80.286 kg GENERAL EXAM: Alert, very pleasant, 60-year-old white female, resting in a gurney in the emergency department, on 100% nonrebreather mask, with a pulse ox of 92-97%, mildly dyspneic comfortable in no apparent distress. HEAD: Normocephalic/atraumatic. EYES: Normal reaction of pupils, equal size. Conjunctiva pink, sclera white. NOSE: Clear with pink turbinates. THROAT: No erythema or exudates. NECK: No masses, no JVD, no thyroid enlargement, no adenopathy. CHEST: No chest wall deformity. Symmetrical expansion. LUNGS: Equal air entry with basilar crackles CVS: Regular rate and rhythm, normal S1 and S2, no gallops, no murmurs, no rubs ABDOMEN: Soft, nontender. No hepatosplenomegaly, normal bowel sounds, no guarding or rigidity. EXTREMITIES: No clubbing, no edema, no cyanosis, 2+ pulses and upper and lower extremities. MUSCULOSKELETAL: Muscle strength and tone normal. SPINE: No scoliosis or deformity SKIN: No rashes CENTRAL NERVOUS SYSTEM: Alert and oriented -3. No focal deficits, tone is normal in all 4 extremities. PSYCHIATRIC: Alert and oriented -3. Appropriate affect. Intact judgment and insight. Results - Laboratory Findings CBC and BMP: 06/24/21 02:35 06/24/21 02:35 PT/INR, D-dimer PT 9.7 sec (9.0-12.0) 06/23/21 23:40 INR 0.9 (<1.2) 06/23/21 23:40 D-Dimer 7.39 mg/L FEU (<0.60) H 06/24/21 06:33 Abnormal lab findings: Abnormal Labs 06/23/21 06/24/21 06/24/21 23:40 02:35 06:33 D-Dimer 7.39 H Sodium 135 L 135 L Potassium 5.8 H Carbon Dioxide 21 L 20 L Glucose 151 H 184 H POC Glucose (mg/dL) Calcium 8.1 L AST 113 H 80 H ALT 76 H 61 H Alkaline Phosphatase 147 H 137 H Lactate Dehydrogenase 2353 H C-Reactive Protein 23.9 H Total Protein 5.9 L Albumin 3.2 L 06/24/21 06/24/21 08:11 12:11 D-Dimer Sodium Potassium Carbon Dioxide Glucose POC Glucose (mg/dL) 222 H 437 H Calcium AST ALT Alkaline Phosphatase Lactate Dehydrogenase C-Reactive Protein Total Protein Albumin - Diagnostic Findings Chest x-ray: report reviewed, image reviewed CT scan - chest: report reviewed, image reviewed Additional studies: EKG reviewed, lower extremity Doppler results reviewed Assessment and Plan Plan: Assessment: #1. Acute hypoxic respiratory failure, already severe at the time of presentation, the patient is on 100% nonrebreather, related to acute COVID-19 pneumonia, with onset of symptoms 2 weeks ago. Patient had outpatient positive COVID-19 PCR test on 06/14/2021. Patient is outside the window for Remdesivir, she will be started on Baricitinib today on 06/24/2021. Patient is non- vaccinated for COVID-19 #2. Elevated d-dimer without CTA evidence of pulmonary embolism or evidence of DVT on bilateral lower extremities #3. Elevated LFTs related to viral pneumonia #4. History of hyperlipidemia #5. Diabetes mellitus type 2 #6. Hypothyroidism #7. Depression #8. Former smoker #9. ADD/ADHD Plan: Continue Decadron Continue Lovenox CTA chest negative for PE Lower extremity Dopplers negative for DVT We'll start the patient on Baricitinib Patient is outside the window for Remdesivir Follow-up chest x-ray and inflammatory markers tomorrow Prognosis is guarded I performed a history & physical examination of the patient and discussed their management with my nurse practitioner, Marla Shen. I reviewed the nurse practitioner's note and agree with the documented findings and plan of care. Lung sounds are positive for diminished breath sounds throughout the lung sharpe. The findings and the impression was discussed with the patient. I at test to the documentation by the nurse practitioner. Time with Patient: Greater than 30
--- NOTE | 2021-06-24 15:48 | P.PN ---
Subjective Progress Note Date: 06/24/21 Hospital course: Patient is a 60-year-old female with a past medical history of hypertension, hyperlipidemia, hypothyroidism, [id number]-pviyhogil diabetes mellitus type 2, depression, and ADHD. She presented to the emergency department on 06/23/21 with a chief complaint of worsening shortness of breath, fever, cough, and generalized malaise/fatigue. Patient reports she began developing these symptoms on 06/13/21 [facility] on 06/17/21 which she reports resulted in a positive Covid 19 virus PCR. Patient reported initially these symptoms seemed to improve but over the past couple days they significantly worsened. In the emergency department patient was found to be hypoxic and initially only requiring 2 L oxygen replacement however overnight patient continued to have worsening hypoxia going from 2-6 L and now requiring 15 L high flow nasal cannula with SpO2 ranging from 90-93%. A chest x-ray was completed confirming bilateral pneumonia. CTA of chest showed no evidence of PE however revealing extensive bilateral interstitial pneumonia and mild mediastinal adenopathy. Bilateral lower extremity Dopplers negative for DVT. EKG showing normal sinus rhythm at 85 bpm with no noted T-wave or ST abnormalities. Inflammatory markers elevated with D- dimer 7.39, LDH 2353, and CRP 23.9. Patient admitted under our services with consultation to pulmonology. Patient placed on DVT prophylaxis with Lovenox, daily Decadron 6 mg IVP, zinc, vitamin C, and vitamin D. Pt is out of window for Remdesivir. Physical exam: Patient was seen and fully evaluated at bedside this morning. She had just finished breakfast and is currently on 15 L high flow nasal cannula maintaining SpO2 between 90 and 93% at this time. Patient reports positive cough and shortness of breath but denies having any chest pain, palpitations, headaches, lightheadedness, dizziness, or experiencing any numbness/tingling/weakness in her extremities. Vital signs reviewed and stable. General: Nontoxic, no distress and appears stated age. Derm: Skin warm and dry, normal coloration for ethnicity. Head: Atraumatic, normocephalic and symmetric. Eyes: EOMs intact, no lid lag, and anicteric sclera Mouth: no lip lesions, mucus membranes moist Cardiovascular: regular rate and rhythm with normal S1S2, no murmur, positive posterior tibial pulses bilaterally, and cap refill < 2 seconds. Lungs: Respirations even, regular, and unlabored on 15L high flow NC.. Lungs with bibasilar crackles, No rhonchi, no rales, no wheezing, and no accessory muscle usage. Abdominal: soft, nontender to palpation, no guarding, no appreciable organomegaly Ext: ROM intact. No gross muscle atrophy, no edema, no contractures Neuro: Speech clear, face symmetrical and CN II-XII grossly intact with no noted focal neuro deficits Psych: Alert and oriented to person, place, time, and situation. Appropriate and pleasant affect. Assessment and Plan of Care: Acute hypoxic respiratory failure secondary to Covid 19 pneumonia in unvaccinated individual Supplemental oxygenation as needed to maintain SpO2 equal to or greater than 90%. Consult to Pulmonology Telemetry monitoring. DVT prophylaxis with Lovenox MDIs as needed for SOB and/or wheezing Incentive Spirometry Steroids: Decadron Day 10/10 Zinc, vitamin C, and vitamin D. Pt is out of window for Remdesivir. Inflammatory markers elevated with D-dimer 7.39, LDH 2353, and CRP 23.9. Will follow. Elevated D-dimer, CTA negative for PE Elevated LFTs likely reactive secondary to current infectious process with COVID 19 Pneumonia Caution with hepatotoxic medications. We will continue to monitor with repeat labs. Hypertension Monitor vital signs and continue daily medication regimen. Hyperlipidemia Continue daily medication regimen. Hypothyroidism Continue daily medication regimen with level thyroxine each morning. Eco-icwsxxy-iveuimfzx diabetes mellitus type 2 Hold oral glycemic medications and place patient on NovoLog sliding scale to maintain tight glycemic control throughout hospitalization. CODE STATUS: Full code DVT prophylaxis: Lovenox Discussed with: Pt and RN Anticipated discharge date: Clinical course to determine Anticipated discharge place: Clinical course to determine. A total of 45 minutes was spent on the care of this complex patient more than 50% of the time was spent in counseling and care coordination. Objective - Vital Signs Vital signs: Vital Signs Temp 97.5 F L 06/23/21 19:53 Pulse 63 06/24/21 08:09 Resp 18 06/24/21 08:09 BP 111/63 06/24/21 08:09 Pulse Ox 98 06/24/21 08:09 Intake & Output 06/23/21 06/24/21 06/24/21 18:59 06:59 18:59 Weight 80.286 kg - Labs CBC & Chem 7: 06/24/21 02:35 06/24/21 02:35 Labs: Abnormal Lab Results - Last 24 Hours (Table) 06/23/21 06/24/21 06/24/21 Range/Units 23:40 02:35 06:33 D-Dimer 7.39 H (<0.60) mg/L FEU Sodium 135 L 135 L (137-145) mmol/L Potassium 5.8 H (3.5-5.1) mmol/L Carbon Dioxide 21 L 20 L (22-30) mmol/L Glucose 151 H 184 H (74-99) mg/dL POC Glucose (mg/dL) (75-99) mg/dL Calcium 8.1 L (8.4-10.2) mg/dL AST 113 H 80 H (14-36) U/L ALT 76 H 61 H (4-34) U/L Alkaline Phosphatase 147 H 137 H (38-126) U/L Lactate Dehydrogenase 2353 H (313-618) U/L C-Reactive Protein 23.9 H (<1.0) mg/dL Total Protein 5.9 L (6.3-8.2) g/dL Albumin 3.2 L (3.5-5.0) g/dL 06/24/21 Range/Units 08:11 D-Dimer (<0.60) mg/L FEU Sodium (137-145) mmol/L Potassium (3.5-5.1) mmol/L Carbon Dioxide (22-30) mmol/L Glucose (74-99) mg/dL POC Glucose (mg/dL) 222 H (75-99) mg/dL Calcium (8.4-10.2) mg/dL AST (14-36) U/L ALT (4-34) U/L Alkaline Phosphatase (38-126) U/L Lactate Dehydrogenase (313-618) U/L C-Reactive Protein (<1.0) mg/dL Total Protein (6.3-8.2) g/dL Albumin (3.5-5.0) g/dL
[2021-06-24 21:15] LABS: Glucose,Whole Blood 322 mg/dL (75-99)
[2021-06-24] MEDS: ARIPiprazole 10 MG TAB PO SCH ×2 (21:55→21:59)
[2021-06-24] MEDS: ATORVASTATIN 10 MG TAB PO SCH (21:56)
[2021-06-24] MEDS: LATANOPROST 0.005% OPHTH DROPS 2.5 ML BTL BOTH EYES SCH (21:56)
[2021-06-24] MEDS: LORATADINE 10 MG TAB PO SCH (21:56)
[2021-06-25] MEDS: LEVOTHYROXINE 75 MCG TAB PO SCH (05:40)
[2021-06-25 07:18] LABS: Glucose,Whole Blood 211 mg/dL (75-99)
[2021-06-25] MEDS: ASCORBIC ACID 500 MG TAB PO SCH (07:46)
[2021-06-25] MEDS: DEXAMETHASONE SOD PHOSPHATE 10 MG/ML 1 ML VIAL IVP SCH (07:46)
[2021-06-25] MEDS: ENOXAPARIN 40 MG/0.4 ML SYRINGE SQ SCH ×2 (07:46→20:06)
[2021-06-25] MEDS: INSULIN ASPART (NovoLOG) 100 UNIT/ML VIAL SQ SCH ×4 (07:46→20:05)
[2021-06-25] MEDS: PANTOPRAZOLE 40 MG TABLET PO SCH (07:47)
[2021-06-25] MEDS: CHOLECALCIFEROL 25 MCG (1000 IU) TABLET PO SCH (07:47)
[2021-06-25] MEDS: ZINC SULFATE 220 MG CAP PO SCH (07:47)
[2021-06-25] MEDS: DULoxetine HCL 30 MG CAPSULE.DR PO SCH (07:47)
[2021-06-25] MEDS: ALBUTEROL HFA INHALER INHALATION SCH ×4 (08:11→21:19)
--- NOTE | 2021-06-25 09:31 | XR ---
EXAMINATION TYPE: XR chest 1V portable DATE OF EXAM: 06/25/2021 COMPARISON: Chest x-ray 06/23/2021 HISTORY: Covid pneumonia TECHNIQUE: Single frontal view of the chest is obtained. FINDINGS: Bilateral airspace disease shows a similar appearance. There is no pneumothorax or pleural effusion. There are overlying leads. Cardiac mediastinal silhouette is stable. IMPRESSION: Correlate for Covid pneumonia.
[2021-06-25 10:09] LABS: Basophils % (A) 0 %; Eosinophils % (A) 0 %; HCT 36.6 % (34.0-46.0); HGB 11.2 gm/dL (11.4-16.0); Lymphocytes # (A) 1.6 k/uL (1.0-4.8); Lymphocytes % (A) 11 %; MCH 28.3 pg (25.0-35.0); MCHC 30.6 g/dL (31.0-37.0); MCV 92.6 fL (80.0-100.0); Mean Platelet Volume 7.5; Monocytes # (A) 0.4 k/uL (0-1.0); Monocytes % (A) 3 %; Neutrophils # (A) 11.8 k/uL (1.3-7.7); Neutrophils % (A) 84 %; Platelet Count 373 k/uL (150-450); RBC 3.95 m/uL (3.80-5.40); RDW 13.4 % (11.5-15.5)
[2021-06-25 10:31] LABS: ALT 66 U/L (4-34); AST 78 U/L (14-36); African American GFR (CKD) >90 (>60 ml/min/1.73 sqM); Albumin 3.4 g/dL (3.5-5.0); Albumin/Globulin Ratio 1.2; Alkaline Phosphatase 155 U/L (38-126); Anion Gap 8 mmol/L; Blood Urea Nitrogen 22 mg/dL (7-17); C Reactive Protein 7.9 mg/dL (<1.0); Calcium 8.8 mg/dL (8.4-10.2); Carbon Dioxide 22 mmol/L (22-30); Chloride 109 mmol/L (98-107); Globulin 2.8 g/dL; Glucose 262 mg/dL (74-99); LDH 1768 U/L (313-618); Non-African American GFR(CKD) >90 (>60 ml/min/1.73 sqM); Potassium 4.5 mmol/L (3.5-5.1); Sodium 139 mmol/L (137-145); Total Bilirubin 0.2 mg/dL (0.2-1.3); Total Protein 6.2 g/dL (6.3-8.2)
[2021-06-25 11:53] LABS: Glucose,Whole Blood 267 mg/dL (75-99)
[2021-06-25] MEDS: BARICITINIB 2 MG TABLET PO SCH (12:46)
--- NOTE | 2021-06-25 13:45 | P.PN ---
Subjective Progress Note Date: 06/25/21 Principal diagnosis: Dyspnea, cough, hypoxemia, pneumonia 60-year-old white female patient with past medical history of diabetes mellitus type 2, hyperlipidemia, hypothyroidism, depression, ADHD, former smoker, who came into the emergency department on 06/23/2021 for evaluation of fever, cough, and worsening shortness of breath, and the onset of symptoms was 2 weeks ago. Patient also reports some episodes of diarrhea. She was diagnosed with COVID-19 on Thursday, around 06/14/2021. Denies any chest pain, her cough is dry, nonproductive, patient is not vaccinated for COVID 19. Chest x-ray shows bilateral patchy peripheral interstitial and airspace infiltrates. Admission labs have been reviewed, showing CBC within normal limits, d-dimer came back elevated at 7.39, sodium was 135, potassium is 5.8, chloride was 103, CO2 is 21, BUN is 15, creatinine 0.6, LDH was 2353, and CRP was 23.9. Patient also had elevation of her liver enzymes with AST of 113, ALT of 76, and alkaline phosphatase was 147. She was started on prophylactic anticoagulation with Lovenox, and Decadron 6 mg daily. At the time of our evaluation patient is already on 100% nonrebreather mask and her pulse ox is 94-97%. She has been afebrile while in the hospital. CT angiogram of the chest showed no evidence of pulmonary embolism, bilateral lower extremity Dopplers showed no evidence of D VT. On 06/25/2021 patient seen in follow-up on medical surgical floor, she is awake and alert, in no acute distress, currently she is down to 10 L of oxygen, pulse ox is 96%, we had subsequently dropped FiO2 down to 8 L. She is up in a chair, looking much more comfortable on today's exam, afebrile, hemodynamically she is stable, yesterday we started the patient on Baricitinib, she continues on Decadron 6 mg daily, and Lovenox 40 mg. Today's labs have been reviewed, white blood cell count is 14, hemoglobin is 11.2, d-dimer has increased to 12.32, sodium is 132, potassium 4.5, CO2 is 22, B1 is 22 creatinine 0.59. LDH is improved and is down to 1768, and CRP is down to 7.9, pro calcitonin level was negative at 0.14. CT angiogram of the chest showed no evidence of pulmonary embolism, bilateral lower extremity Dopplers were negative for DVT Objective - Vital Signs Vital signs: Vital Signs Temp 98 F 06/25/21 08:00 Pulse 61 06/25/21 08:00 Resp 16 06/25/21 08:00 BP 114/75 06/25/21 08:00 Pulse Ox 96 06/25/21 08:11 Intake & Output 06/24/21 06/25/21 06/25/21 18:59 06:59 18:59 Intake Total 200 360 472 Output Total 400 300 Balance 200 -40 172 Intake: Oral 200 360 472 Output: Urine 400 300 Other: Voiding Method Toilet Toilet # Voids 1 1 1 # Bowel Movements 1 - Exam GENERAL EXAM: Alert, very pleasant, 60-year-old white female, resting in a gurney in the emergency department, on 10 L per high flow nasal cannula with a pulse ox of 96%, mildly dyspneic comfortable in no apparent distress. HEAD: Normocephalic/atraumatic. EYES: Normal reaction of pupils, equal size. Conjunctiva pink, sclera white. NOSE: Clear with pink turbinates. THROAT: No erythema or exudates. NECK: No masses, no JVD, no thyroid enlargement, no adenopathy. CHEST: No chest wall deformity. Symmetrical expansion. LUNGS: Equal air entry with basilar crackles CVS: Regular rate and rhythm, normal S1 and S2, no gallops, no murmurs, no rubs ABDOMEN: Soft, nontender. No hepatosplenomegaly, normal bowel sounds, no guarding or rigidity. EXTREMITIES: No clubbing, no edema, no cyanosis, 2+ pulses and upper and lower extremities. MUSCULOSKELETAL: Muscle strength and tone normal. SPINE: No scoliosis or deformity SKIN: No rashes CENTRAL NERVOUS SYSTEM: Alert and oriented -3. No focal deficits, tone is normal in all 4 extremities. PSYCHIATRIC: Alert and oriented -3. Appropriate affect. Intact judgment and insight. - Labs CBC & Chem 7: 06/25/21 09:42 06/25/21 09:42 Labs: Abnormal Lab Results - Last 24 Hours (Table) 06/24/21 06/24/21 06/24/21 Range/Units 06:33 06:33 21:14 WBC (3.8-10.6) k/uL Hgb (11.4-16.0) gm/dL MCHC (31.0-37.0) g/dL Neutrophils # (1.3-7.7) k/uL D-Dimer (<0.60) mg/L FEU Chloride (98-107) mmol/L BUN (7-17) mg/dL Glucose (74-99) mg/dL POC Glucose (mg/dL) 322 H (75-99) mg/dL Ferritin 823.0 H (10.0-291.0) ng/mL AST (14-36) U/L ALT (4-34) U/L Alkaline Phosphatase (38-126) U/L Lactate Dehydrogenase (313-618) U/L C-Reactive Protein (<1.0) mg/dL Total Protein (6.3-8.2) g/dL Albumin (3.5-5.0) g/dL Procalcitonin 0.14 H (0.02-0.09) ng/mL 06/25/21 06/25/21 06/25/21 Range/Units 07:17 09:42 09:42 WBC 14.0 H (3.8-10.6) k/uL Hgb 11.2 L (11.4-16.0) gm/dL MCHC 30.6 L (31.0-37.0) g/dL Neutrophils # 11.8 H (1.3-7.7) k/uL D-Dimer 12.32 H (<0.60) mg/L FEU Chloride (98-107) mmol/L BUN (7-17) mg/dL Glucose (74-99) mg/dL POC Glucose (mg/dL) 211 H (75-99) mg/dL Ferritin (10.0-291.0) ng/mL AST (14-36) U/L ALT (4-34) U/L Alkaline Phosphatase (38-126) U/L Lactate Dehydrogenase (313-618) U/L C-Reactive Protein (<1.0) mg/dL Total Protein (6.3-8.2) g/dL Albumin (3.5-5.0) g/dL Procalcitonin (0.02-0.09) ng/mL 06/25/21 06/25/21 Range/Units 09:42 11:52 WBC (3.8-10.6) k/uL Hgb (11.4-16.0) gm/dL MCHC (31.0-37.0) g/dL Neutrophils # (1.3-7.7) k/uL D-Dimer (<0.60) mg/L FEU Chloride 109 H (98-107) mmol/L BUN 22 H (7-17) mg/dL Glucose 262 H (74-99) mg/dL POC Glucose (mg/dL) 267 H (75-99) mg/dL Ferritin (10.0-291.0) ng/mL AST 78 H (14-36) U/L ALT 66 H (4-34) U/L Alkaline Phosphatase 155 H (38-126) U/L Lactate Dehydrogenase 1768 H (313-618) U/L C-Reactive Protein 7.9 H (<1.0) mg/dL Total Protein 6.2 L (6.3-8.2) g/dL Albumin 3.4 L (3.5-5.0) g/dL Procalcitonin (0.02-0.09) ng/mL Microbiology - Last 24 Hours (Table) 06/24/21 02:39 Blood Culture - Preliminary Blood No Growth after 24 hours 06/24/21 02:35 Blood Culture - Preliminary Blood No Growth after 24 hours 06/23/21 23:40 Blood Culture - Preliminary Blood No Growth after 24 hours Assessment and Plan Plan: Assessment: #1. Acute hypoxic respiratory failure, already severe at the time of presentation, the patient is on 100% nonrebreather, related to acute COVID-19 pneumonia, with onset of symptoms 2 weeks ago. Patient had outpatient positive COVID-19 PCR test on 06/14/2021. Patient is outside the window for Remdesivir, she will be started on Baricitinib today on 06/24/2021. Patient is non- vaccinated for COVID-19 #2. Elevated d-dimer without CTA evidence of pulmonary embolism or evidence of DVT on bilateral lower extremities #3. Elevated LFTs related to viral pneumonia #4. History of hyperlipidemia #5. Diabetes mellitus type 2 #6. Hypothyroidism #7. Depression #8. Former smoker #9. ADD/ADHD Plan: Patient is breathing easier, She is down to 10 L per high flow nasal cannula Continue weaning FiO2 to keep O2 saturation at her above 90% or as tolerated Continue Decadron, and Baricitinib Increase Lovenox to 40 mg BID CTA chest negative for PE Lower extremity Dopplers negative for DVT Follow-up chest x-ray and inflammatory markers noted I performed a history & physical examination of the patient and discussed their management with my nurse practitioner, Marla Shen. I reviewed the nurse practitioner's note and agree with the documented findings and plan of care. Lung sounds are positive for diminished breath sounds throughout the lung sharpe. The findings and the impression was discussed with the patient. I attest to the documentation by the nurse practitioner. Time with Patient: Less than 30
[2021-06-25 16:59] LABS: Glucose,Whole Blood 317 mg/dL (75-99)
--- NOTE | 2021-06-25 17:37 | P.PN ---
Subjective Progress Note Date: 06/25/21 Patient was seen and examined at the bedside on 06/25. She reports continued shortness of breath with no meaningful improvement over the past 24 hours. She denied chest discomfort, fever, chills, nausea, vomiting. Objective - Vital Signs Vital signs: Vital Signs Temp 98.6 F 06/25/21 14:00 Pulse 64 06/25/21 14:00 Resp 16 06/25/21 14:00 BP 110/70 06/25/21 14:00 Pulse Ox 96 06/25/21 14:00 Intake & Output 06/24/21 06/25/21 06/25/21 18:59 06:59 18:59 Intake Total 200 360 472 Output Total 400 300 Balance 200 -40 172 Intake: Oral 200 360 472 Output: Urine 400 300 Other: Voiding Method Toilet Toilet # Voids 1 1 1 # Bowel Movements 1 - Exam General: Non-toxic, in no acute distress, appears stated age, normal weight HEENT: NC/AT, anicteric sclerae, moist conjunctiva, no lid-lag, PERRLA Cardiovascular: S1/S2 wnl, no murmurs, rubs, or gallops Lungs: Diffuse bilateral rhonchi and rales, no accessory muscle use Abdominal: Soft, non-tender, non-distended, no guarding, rebound, or rigidity Skin: Warm, dry Extremities: No edema or contractures Psychiatric: Alert and oriented to person, place and time, appropriate affect Neuro: CN II-XII grossly intact, Strength 5/5 in all 4 extremities, Speech intact, Sensation to light touch grossly intact throughout - Labs CBC & Chem 7: 06/25/21 09:42 06/25/21 09:42 Labs: Abnormal Lab Results - Last 24 Hours (Table) 06/24/21 06/25/21 06/25/21 Range/Units 21:14 07:17 09:42 WBC 14.0 H (3.8-10.6) k/uL Hgb 11.2 L (11.4-16.0) gm/dL MCHC 30.6 L (31.0-37.0) g/dL Neutrophils # 11.8 H (1.3-7.7) k/uL D-Dimer (<0.60) mg/L FEU Chloride (98-107) mmol/L BUN (7-17) mg/dL Glucose (74-99) mg/dL POC Glucose (mg/dL) 322 H 211 H (75-99) mg/dL AST (14-36) U/L ALT (4-34) U/L Alkaline Phosphatase (38-126) U/L Lactate Dehydrogenase (313-618) U/L C-Reactive Protein (<1.0) mg/dL Total Protein (6.3-8.2) g/dL Albumin (3.5-5.0) g/dL 06/25/21 06/25/21 06/25/21 Range/Units 09:42 09:42 11:52 WBC (3.8-10.6) k/uL Hgb (11.4-16.0) gm/dL MCHC (31.0-37.0) g/dL Neutrophils # (1.3-7.7) k/uL D-Dimer 12.32 H (<0.60) mg/L FEU Chloride 109 H (98-107) mmol/L BUN 22 H (7-17) mg/dL Glucose 262 H (74-99) mg/dL POC Glucose (mg/dL) 267 H (75-99) mg/dL AST 78 H (14-36) U/L ALT 66 H (4-34) U/L Alkaline Phosphatase 155 H (38-126) U/L Lactate Dehydrogenase 1768 H (313-618) U/L C-Reactive Protein 7.9 H (<1.0) mg/dL Total Protein 6.2 L (6.3-8.2) g/dL Albumin 3.4 L (3.5-5.0) g/dL 06/25/21 Range/Units 16:58 WBC (3.8-10.6) k/uL Hgb (11.4-16.0) gm/dL MCHC (31.0-37.0) g/dL Neutrophils # (1.3-7.7) k/uL D-Dimer (<0.60) mg/L FEU Chloride (98-107) mmol/L BUN (7-17) mg/dL Glucose (74-99) mg/dL POC Glucose (mg/dL) 317 H (75-99) mg/dL AST (14-36) U/L ALT (4-34) U/L Alkaline Phosphatase (38-126) U/L Lactate Dehydrogenase (313-618) U/L C-Reactive Protein (<1.0) mg/dL Total Protein (6.3-8.2) g/dL Albumin (3.5-5.0) g/dL Microbiology - Last 24 Hours (Table) 06/24/21 02:39 Blood Culture - Preliminary Blood No Growth after 24 hours 06/24/21 02:35 Blood Culture - Preliminary Blood No Growth after 24 hours 06/23/21 23:40 Blood Culture - Preliminary Blood No Growth after 24 hours Assessment and Plan Plan: Acute hypoxic respiratory failure secondary to COVID-19 pneumonia -Pulmonary recommendations appreciated -Patient continues to be on high flow nasal cannula oxygen 15 L -Continue Decadron -Continue vitamin C, zinc, vitamin D -Continue to monitor inflammatory markers Chronic conditions: Hypertension, hyperkalemia, Cardizem -Continue with home medications Abnormal LFTs -Likely due to ongoing infection -Monitor for now DVT prophylaxis -Lovenox Discussed with: Patient Anticipated discharge date: Unclear Anticipated discharge place: Home
[2021-06-25 20:05] LABS: Glucose,Whole Blood 325 mg/dL (75-99)
[2021-06-25] MEDS: LORATADINE 10 MG TAB PO SCH (20:06)
[2021-06-25] MEDS: ATORVASTATIN 10 MG TAB PO SCH (20:06)
[2021-06-25] MEDS: LATANOPROST 0.005% OPHTH DROPS 2.5 ML BTL BOTH EYES SCH (20:06)
[2021-06-25] MEDS: ARIPiprazole 10 MG TAB PO SCH (20:06)
[2021-06-26] MEDS: LEVOTHYROXINE 75 MCG TAB PO SCH (05:34)
[2021-06-26 07:03] LABS: Basophils % (A) 0 %; Eosinophils % (A) 0 %; HGB 11.4 gm/dL (11.4-16.0); Lymphocytes # (A) 2.4 k/uL (1.0-4.8); Lymphocytes % (A) 24 %; MCHC 31.6 g/dL (31.0-37.0); MCV 91.8 fL (80.0-100.0); Mean Platelet Volume 7.7; Monocytes # (A) 0.4 k/uL (0-1.0); Monocytes % (A) 4 %; Neutrophils # (A) 6.9 k/uL (1.3-7.7); Neutrophils % (A) 69 %; Platelet Count 446 k/uL (150-450); RBC 3.92 m/uL (3.80-5.40); RDW 13.2 % (11.5-15.5)
[2021-06-26 07:08] LABS: Glucose,Whole Blood 226 mg/dL (75-99)
[2021-06-26 07:19] LABS: ALT 78 U/L (4-34); AST 70 U/L (14-36); African American GFR (CKD) >90 (>60 ml/min/1.73 sqM); Albumin 3.4 g/dL (3.5-5.0); Albumin/Globulin Ratio 1.3; Alkaline Phosphatase 157 U/L (38-126); Anion Gap 9 mmol/L; Blood Urea Nitrogen 26 mg/dL (7-17); Calcium 9.1 mg/dL (8.4-10.2); Carbon Dioxide 24 mmol/L (22-30); Chloride 107 mmol/L (98-107); Globulin 2.7 g/dL; Glucose 248 mg/dL (74-99); Non-African American GFR(CKD) 89 (>60 ml/min/1.73 sqM); Potassium 4.6 mmol/L (3.5-5.1); Sodium 140 mmol/L (137-145); Total Bilirubin 0.4 mg/dL (0.2-1.3); Total Protein 6.1 g/dL (6.3-8.2)
[2021-06-26] MEDS: DEXAMETHASONE SOD PHOSPHATE 10 MG/ML 1 ML VIAL IVP SCH (07:28)
[2021-06-26] MEDS: ZINC SULFATE 220 MG CAP PO SCH (07:29)
[2021-06-26] MEDS: ASCORBIC ACID 500 MG TAB PO SCH (07:29)
[2021-06-26] MEDS: PANTOPRAZOLE 40 MG TABLET PO SCH (07:29)
[2021-06-26] MEDS: DULoxetine HCL 30 MG CAPSULE.DR PO SCH (07:29)
[2021-06-26] MEDS: CHOLECALCIFEROL 25 MCG (1000 IU) TABLET PO SCH (07:29)
[2021-06-26] MEDS: INSULIN ASPART (NovoLOG) 100 UNIT/ML VIAL SQ SCH ×5 (07:30→20:55)
[2021-06-26] MEDS: ENOXAPARIN 40 MG/0.4 ML SYRINGE SQ SCH ×2 (07:30→20:21)
[2021-06-26] MEDS: ALBUTEROL HFA INHALER INHALATION SCH ×4 (08:27→21:18)
[2021-06-26 11:41] LABS: Glucose,Whole Blood 399 mg/dL (75-99)
[2021-06-26] MEDS: BARICITINIB 2 MG TABLET PO SCH (12:40)
--- NOTE | 2021-06-26 13:28 | P.PN ---
Subjective Progress Note Date: 06/26/21 Principal diagnosis: Dyspnea, cough, hypoxemia, pneumonia 60-year-old white female patient with past medical history of diabetes mellitus type 2, hyperlipidemia, hypothyroidism, depression, ADHD, former smoker, who came into the emergency department on 06/23/2021 for evaluation of fever, cough, and worsening shortness of breath, and the onset of symptoms was 2 weeks ago. Patient also reports some episodes of diarrhea. She was diagnosed with COVID-19 on Thursday, around 06/14/2021. Denies any chest pain, her cough is dry, nonproductive, patient is not vaccinated for COVID 19. Chest x-ray shows bilateral patchy peripheral interstitial and airspace infiltrates. Admission labs have been reviewed, showing CBC within normal limits, d-dimer came back elevated at 7.39, sodium was 135, potassium is 5.8, chloride was 103, CO2 is 21, BUN is 15, creatinine 0.6, LDH was 2353, and CRP was 23.9. Patient also had elevation of her liver enzymes with AST of 113, ALT of 76, and alkaline phosphatase was 147. She was started on prophylactic anticoagulation with Lovenox, and Decadron 6 mg daily. At the time of our evaluation patient is already on 100% nonrebreather mask and her pulse ox is 94-97%. She has been afebrile while in the hospital. CT angiogram of the chest showed no evidence of pulmonary embolism, bilateral lower extremity Dopplers showed no evidence of D VT. On 06/25/2021 patient seen in follow-up on medical surgical floor, she is awake and alert, in no acute distress, currently she is down to 10 L of oxygen, pulse ox is 96%, we had subsequently dropped FiO2 down to 8 L. She is up in a chair, looking much more comfortable on today's exam, afebrile, hemodynamically she is stable, yesterday we started the patient on Baricitinib, she continues on Decadron 6 mg daily, and Lovenox 40 mg. Today's labs have been reviewed, white blood cell count is 14, hemoglobin is 11.2, d-dimer has increased to 12.32, sodium is 132, potassium 4.5, CO2 is 22, B1 is 22 creatinine 0.59. LDH is improved and is down to 1768, and CRP is down to 7.9, pro calcitonin level was negative at 0.14. CT angiogram of the chest showed no evidence of pulmonary embolism, bilateral lower extremity Dopplers were negative for DVT On 06/26/2021 patient is seen in follow-up on medical surgical floor. She states she is feeling better, she is currently on 8 L of oxygen her pulse ox is 96%, FiO2 has been dropped to 6 L, she is breathing quite comfortably, she sat up in bed, she is given. Teeth lunch, her appetite has been good. She has had no events overnight. No fever or chills, hemodynamics stable, no worsening dyspnea, cough, hypoxia or chest discomfort. These labs have been reviewed, CBC was within normal limits, electrolytes and renal profile were unremarkable. AST is improved and is down to 70, ALT remains fairly stable at 78, and alkaline phosphatase slightly improved at 157, her LDH was improving from admission on yesterday's labs. Pro calcitonin level was negative. Bilateral lower extremity Dopplers were negative for DVT, CT angiogram of the chest was negative for pulmonary embolism. Continues on Lovenox 40 mg twice daily. Objective - Vital Signs Vital signs: Vital Signs Temp 98.1 F 06/26/21 10: Pulse 73 06/26/21 10:27 Resp 16 06/26/21 10:27 BP 108/89 06/26/21 10:27 Pulse Ox 96 06/26/21 12:52 Intake & Output 06/25/21 06/26/21 06/26/21 18:59 06:59 18:59 Intake Total 708 260 236 Output Total 300 450 450 Balance 408 -190 -214 Intake: Oral 708 260 236 Output: Urine 300 450 450 Other: Voiding Method Toilet Bedside Commode Bedside Commode # Voids 1 1 1 - Exam GENERAL EXAM: Alert, very pleasant, 60-year-old white female, resting in a gurney in the emergency department, on 8 L per high flow nasal cannula with a pulse ox of 96% HEAD: Normocephalic/atraumatic. EYES: Normal reaction of pupils, equal size. Conjunctiva pink, sclera white. NOSE: Clear with pink turbinates. THROAT: No erythema or exudates. NECK: No masses, no JVD, no thyroid enlargement, no adenopathy. CHEST: No chest wall deformity. Symmetrical expansion. LUNGS: Equal air entry with basilar crackles CVS: Regular rate and rhythm, normal S1 and S2, no gallops, no murmurs, no rubs ABDOMEN: Soft, nontender. No hepatosplenomegaly, normal bowel sounds, no guarding or rigidity. EXTREMITIES: No clubbing, no edema, no cyanosis, 2+ pulses and upper and lower extremities. MUSCULOSKELETAL: Muscle strength and tone normal. SPINE: No scoliosis or deformity SKIN: No rashes CENTRAL NERVOUS SYSTEM: Alert and oriented -3. No focal deficits, tone is normal in all 4 extremities. PSYCHIATRIC: Alert and oriented -3. Appropriate affect. Intact judgment and insight. - Labs CBC & Chem 7: 06/26/21 06:22 06/26/21 06:22 Labs: Abnormal Lab Results - Last 24 Hours (Table) 06/25/21 06/25/21 06/26/21 Range/Units 16:58 20:03 06:22 BUN 26 H (7-17) mg/dL Glucose 248 H (74-99) mg/dL POC Glucose (mg/dL) 317 H 325 H (75-99) mg/dL AST 70 H (14-36) U/L ALT 78 H (4-34) U/L Alkaline Phosphatase 157 H (38-126) U/L Total Protein 6.1 L (6.3-8.2) g/dL Albumin 3.4 L (3.5-5.0) g/dL 06/26/21 06/26/21 Range/Units 07:06 11:40 BUN (7-17) mg/dL Glucose (74-99) mg/dL POC Glucose (mg/dL) 226 H 399 H (75-99) mg/dL AST (14-36) U/L ALT (4-34) U/L Alkaline Phosphatase (38-126) U/L Total Protein (6.3-8.2) g/dL Albumin (3.5-5.0) g/dL Microbiology - Last 24 Hours (Table) 06/24/21 02:39 Blood Culture - Preliminary Blood No Growth after 48 hours 06/24/21 02:35 Blood Culture - Preliminary Blood No Growth after 48 hours 06/23/21 23:40 Blood Culture - Preliminary Blood No Growth after 48 hours Assessment and Plan Plan: Assessment: #1. Acute hypoxic respiratory failure, already severe at the time of presentation, the patient is on 100% nonrebreather, related to acute COVID-19 pneumonia, with onset of symptoms 2 weeks ago. Patient had outpatient positive COVID-19 PCR test on 06/14/2021. Patient is outside the window for Remdesivir, she will be started on Baricitinib today on 06/24/2021. Patient is non- vaccinated for COVID-19 #2. Elevated d-dimer without CTA evidence of pulmonary embolism or evidence of DVT on bilateral lower extremities #3. Elevated LFTs related to viral pneumonia #4. History of hyperlipidemia #5. Diabetes mellitus type 2 #6. Hypothyroidism #7. Depression #8. Former smoker #9. ADD/ADHD Plan: Patient continues to improve, FiO2 is down to 6 L Continue weaning FiO2 to keep O2 sats saturation scattered are above 90% Last signs have been stable, Continue current medical treatment with Decadron, Baricitinib, Lovenox and vitamins If her FiO2 is down to 5 L or less and she remains stable may consider discharge home tomorrow on home oxygen I performed a history & physical examination of the patient and discussed their management with my nurse practitioner, Marla Shen. I reviewed the nurse practitioner's note and agree with the documented findings and plan of care. Lung sounds are positive for diminished breath sounds throughout the lung sharpe. The findings and the impression was discussed with the patient. I attest to the documentation by the nurse practitioner. Time with Patient: Less than 30
--- NOTE | 2021-06-26 15:23 | P.PN ---
Subjective Progress Note Date: 06/26/21 The patient is a 50-year-old female with a PMH of hypertension, hyperlipidemia, type II DM, hypothyroidism, depression, and ADHD who had presented to the emergency room with complaints of gradually worsening shortness of breath, fever, and lethargy. The patient was diagnosed with COVID-19 and started on s upplemental oxygen and admitted for further management. The patient's respiratory status initially worsened and she was started on 15 L of high flow nasal cannula oxygen. Pulmonary medicine was also consulted. The patient's oxygen requirements have gradually been decreasing over the past 48 hours, and is now requiring 6 L oxygen via nasal cannula. She was seen at the bedside on 06/26. She reported gradual improvement in her shortness of breath. She denied any additional complaints. He denied chest discomfort, nausea, vomiting, abdominal pain. General: Non-toxic, in no acute distress, appears stated age, overweight HEENT: NC/AT, anicteric sclerae, moist conjunctiva, no lid-lag, PERRLA Cardiovascular: S1/S2 wnl, no murmurs, rubs, or gallops Lungs: Scattered rhonchi and rales, no accessory muscle use Abdominal: Soft, non-tender, non-distended, no guarding, rebound, or rigidity Skin: Warm, dry Extremities: No edema or contractures Psychiatric: Alert and oriented to person, place and time, appropriate affect Neuro: CN II-XII grossly intact, Strength 5/5 in all 4 extremities, Speech intact, Sensation to light touch grossly intact throughout Chest/plan Acute hypoxic respiratory failure secondary to COVID-19 pneumonia -Pulmonary recommendations appreciated -Oxygen requirements gradually decreasing, currently on 6 L nasal cannula oxygen -Continue Decadron -Continue vitamin C, zinc, vitamin D Chronic conditions: Hypertension, hyperlipidemia, type II DM, hypothyroidism -Continue with home medications -NovoLog 5 units before meals 3 times a day, Levemir 10 units daily at bedtime Abnormal LFTs -Likely due to ongoing infection -Monitor for now DVT prophylaxis -Lovenox Discussed with: Patient Anticipated discharge date: in am Anticipated discharge place: Home Objective - Vital Signs Vital signs: Vital Signs Temp 99.4 F 06/26/21 14:00 Pulse 71 06/26/21 14:00 Resp 16 06/26/21 14:00 BP 125/76 06/26/21 14:00 Pulse Ox 94 L 06/26/21 14:00 Intake & Output 06/25/21 06/26/21 06/26/21 18:59 06:59 18:59 Intake Total 708 260 472 Output Total 300 450 450 Balance 408 -190 22 Intake: Oral 708 260 472 Output: Urine 300 450 450 Other: Voiding Method Toilet Bedside Commode Bedside Commode # Voids 1 1 1 - Labs CBC & Chem 7: 06/26/21 06:22 06/26/21 06:22 Labs: Abnormal Lab Results - Last 24 Hours (Table) 06/25/21 06/25/21 06/26/21 Range/Units 16:58 20:03 06:22 BUN 26 H (7-17) mg/dL Glucose 248 H (74-99) mg/dL POC Glucose (mg/dL) 317 H 325 H (75-99) mg/dL AST 70 H (14-36) U/L ALT 78 H (4-34) U/L Alkaline Phosphatase 157 H (38-126) U/L Total Protein 6.1 L (6.3-8.2) g/dL Albumin 3.4 L (3.5-5.0) g/dL 06/26/21 06/26/21 Range/Units 07:06 11:40 BUN (7-17) mg/dL Glucose (74-99) mg/dL POC Glucose (mg/dL) 226 H 399 H (75-99) mg/dL AST (14-36) U/L ALT (4-34) U/L Alkaline Phosphatase (38-126) U/L Total Protein (6.3-8.2) g/dL Albumin (3.5-5.0) g/dL Microbiology - Last 24 Hours (Table) 06/24/21 02:39 Blood Culture - Preliminary Blood No Growth after 48 hours 06/24/21 02:35 Blood Culture - Preliminary Blood No Growth after 48 hours 06/23/21 23:40 Blood Culture - Preliminary Blood No Growth after 48 hours
[2021-06-26 16:40] LABS: Glucose,Whole Blood 333 mg/dL (75-99)
[2021-06-26] MEDS: LORATADINE 10 MG TAB PO SCH (20:21)
[2021-06-26] MEDS: ATORVASTATIN 10 MG TAB PO SCH (20:21)
[2021-06-26] MEDS: ARIPiprazole 10 MG TAB PO SCH (20:21)
[2021-06-26] MEDS: LATANOPROST 0.005% OPHTH DROPS 2.5 ML BTL BOTH EYES SCH (20:22)
[2021-06-26 20:31] LABS: Glucose,Whole Blood 330 mg/dL (75-99)
[2021-06-26] MEDS: INSULIN DETEMIR (LEVEMIR) 100 UNIT/ML SYR SQ SCH (20:54)
[2021-06-27] MEDS: LEVOTHYROXINE 75 MCG TAB PO SCH (05:37)
[2021-06-27 07:18] LABS: Glucose,Whole Blood 222 mg/dL (75-99)
[2021-06-27] MEDS: CHOLECALCIFEROL 25 MCG (1000 IU) TABLET PO SCH (07:51)
[2021-06-27] MEDS: ASCORBIC ACID 500 MG TAB PO SCH (07:51)
[2021-06-27] MEDS: DULoxetine HCL 30 MG CAPSULE.DR PO SCH (07:51)
[2021-06-27] MEDS: ENOXAPARIN 40 MG/0.4 ML SYRINGE SQ SCH ×2 (07:51→21:45)
[2021-06-27] MEDS: ZINC SULFATE 220 MG CAP PO SCH (07:52)
[2021-06-27] MEDS: INSULIN ASPART (NovoLOG) 100 UNIT/ML VIAL SQ SCH ×7 (07:52→21:45)
[2021-06-27] MEDS: DEXAMETHASONE SOD PHOSPHATE 10 MG/ML 1 ML VIAL IVP SCH (07:52)
[2021-06-27] MEDS: PANTOPRAZOLE 40 MG TABLET PO SCH (07:52)
[2021-06-27] MEDS: ALBUTEROL HFA INHALER INHALATION SCH ×4 (09:09→21:01)
[2021-06-27 11:27] LABS: Glucose,Whole Blood 277 mg/dL (75-99)
[2021-06-27] MEDS: BARICITINIB 2 MG TABLET PO SCH (12:19)
--- NOTE | 2021-06-27 14:16 | P.PN ---
Subjective Progress Note Date: 06/27/21 Principal diagnosis: Dyspnea, cough, hypoxemia, pneumonia 60-year-old white female patient with past medical history of diabetes mellitus type 2, hyperlipidemia, hypothyroidism, depression, ADHD, former smoker, who came into the emergency department on 06/23/2021 for evaluation of fever, cough, and worsening shortness of breath, and the onset of symptoms was 2 weeks ago. Patient also reports some episodes of diarrhea. She was diagnosed with COVID-19 on Thursday, around 06/14/2021. Denies any chest pain, her cough is dry, nonproductive, patient is not vaccinated for COVID 19. Chest x-ray shows bilateral patchy peripheral interstitial and airspace infiltrates. Admission labs have been reviewed, showing CBC within normal limits, d-dimer came back elevated at 7.39, sodium was 135, potassium is 5.8, chloride was 103, CO2 is 21, BUN is 15, creatinine 0.6, LDH was 2353, and CRP was 23.9. Patient also had elevation of her liver enzymes with AST of 113, ALT of 76, and alkaline phosphatase was 147. She was started on prophylactic anticoagulation with Lovenox, and Decadron 6 mg daily. At the time of our evaluation patient is already on 100% nonrebreather mask and her pulse ox is 94-97%. She has been afebrile while in the hospital. CT angiogram of the chest showed no evidence of pulmonary embolism, bilateral lower extremity Dopplers showed no evidence of D VT. On 06/25/2021 patient seen in follow-up on medical surgical floor, she is awake and alert, in no acute distress, currently she is down to 10 L of oxygen, pulse ox is 96%, we had subsequently dropped FiO2 down to 8 L. She is up in a chair, looking much more comfortable on today's exam, afebrile, hemodynamically she is stable, yesterday we started the patient on Baricitinib, she continues on Decadron 6 mg daily, and Lovenox 40 mg. Today's labs have been reviewed, white blood cell count is 14, hemoglobin is 11.2, d-dimer has increased to 12.32, sodium is 132, potassium 4.5, CO2 is 22, B1 is 22 creatinine 0.59. LDH is improved and is down to 1768, and CRP is down to 7.9, pro calcitonin level was negative at 0.14. CT angiogram of the chest showed no evidence of pulmonary embolism, bilateral lower extremity Dopplers were negative for DVT On 06/26/2021 patient is seen in follow-up on medical surgical floor. She states she is feeling better, she is currently on 8 L of oxygen her pulse ox is 96%, FiO2 has been dropped to 6 L, she is breathing quite comfortably, she sat up in bed, she is given. Teeth lunch, her appetite has been good. She has had no events overnight. No fever or chills, hemodynamics stable, no worsening dyspnea, cough, hypoxia or chest discomfort. These labs have been reviewed, CBC was within normal limits, electrolytes and renal profile were unremarkable. AST is improved and is down to 70, ALT remains fairly stable at 78, and alkaline phosphatase slightly improved at 157, her LDH was improving from admission on yesterday's labs. Pro calcitonin level was negative. Bilateral lower extremity Dopplers were negative for DVT, CT angiogram of the chest was negative for pulmonary embolism. Continues on Lovenox 40 mg twice daily. On 06/27/2021 patient seen in follow-up on general medical surgical floor. She is currently on 6 L of oxygen her pulse ox is 97%, her FiO2 was then cut back to 4 L, she is breathing comfortably, afebrile, no complaints of chills, no complaints of worsening dyspnea or chest discomfort. Vital signs have been stable. Today's labs are pending, however her inflammatory markers were improving since admission. She continues on Lovenox 40 mg twice daily, she has had no evidence of DVT on bilateral lower extremity Dopplers or PE on CT angiogram. She continues on Decadron 6 mg daily, Lovenox 40 mg twice daily, and Baricitinib. She has had no acute events overnight. Objective - Vital Signs Vital signs: Vital Signs Temp 98.1 F 06/27/21 09:59 Pulse 67 06/27/21 09:59 Resp 18 06/27/21 09:59 BP 109/71 06/27/21 09:59 Pulse Ox 97 06/27/21 09:59 Intake & Output 06/26/21 06/27/21 06/27/21 18:59 06:59 18:59 Intake Total 708 Output Total 450 Balance 258 Intake: Oral 708 Output: Urine 450 Other: Voiding Method Bedside Commode Bedside Commode # Voids 1 2 - Exam GENERAL EXAM: Alert, very pleasant, 60-year-old white female, resting in a gur deborah in the emergency department, on 6 L per high flow nasal cannula with a pulse ox of 97% HEAD: Normocephalic/atraumatic. EYES: Normal reaction of pupils, equal size. Conjunctiva pink, sclera white. NOSE: Clear with pink turbinates. THROAT: No erythema or exudates. NECK: No masses, no JVD, no thyroid enlargement, no adenopathy. CHEST: No chest wall deformity. Symmetrical expansion. LUNGS: Equal air entry with basilar crackles CVS: Regular rate and rhythm, normal S1 and S2, no gallops, no murmurs, no rubs ABDOMEN: Soft, nontender. No hepatosplenomegaly, normal bowel sounds, no guarding or rigidity. EXTREMITIES: No clubbing, no edema, no cyanosis, 2+ pulses and upper and lower extremities. MUSCULOSKELETAL: Muscle strength and tone normal. SPINE: No scoliosis or deformity SKIN: No rashes CENTRAL NERVOUS SYSTEM: Alert and oriented -3. No focal deficits, tone is normal in all 4 extremities. PSYCHIATRIC: Alert and oriented -3. Appropriate affect. Intact judgment and insight. - Labs CBC & Chem 7: 06/26/21 06:22 06/26/21 06:22 Labs: Abnormal Lab Results - Last 24 Hours (Table) 06/26/21 06/26/21 06/27/21 Range/Units 16:39 20:30 07:15 POC Glucose (mg/dL) 333 H 330 H 222 H (75-99) mg/dL 06/27/21 Range/Units 11:23 POC Glucose (mg/dL) 277 H (75-99) mg/dL Microbiology - Last 24 Hours (Table) 06/24/21 02:35 Blood Culture - Preliminary Blood No Growth after 72 hours 06/24/21 02:39 Blood Culture - Preliminary Blood No Growth after 72 hours 06/23/21 23:40 Blood Culture - Preliminary Blood No Growth after 72 hours Assessment and Plan Plan: Assessment: #1. Acute hypoxic respiratory failure, already severe at the time of presentation, the patient is on 100% nonrebreather, related to acute COVID-19 pneumonia, with onset of symptoms 2 weeks ago. Patient had outpatient positive COVID-19 PCR test on 06/14/2021. Patient is outside the window for Remdesivir, she will be started on Baricitinib today on 06/24/2021. Patient is non- vaccinated for COVID-19 #2. Elevated d-dimer without CTA evidence of pulmonary embolism or evidence of DVT on bilateral lower extremities #3. Elevated LFTs related to viral pneumonia #4. History of hyperlipidemia #5. Diabetes mellitus type 2 #6. Hypothyroidism #7. Depression #8. Former smoker #9. ADD/ADHD Plan: Patient continues to improve, FiO2 is down to 4 L Breathing comfortably No acute events overnight Maintaining stable O2 saturations at or above 90% on less than 5 L of oxygen patient may be considered for discharge home today On outpatient oral course of Decadron 6 mg daily total of 10 days No need for prophylactic anticoagulation post discharge Continue vitamins Patient will need home oxygen Outpatient follow-up with Dr. Espinosa any office in 2 weeks I performed a history & physical examination of the patient and discussed their management with my nurse practitioner, Marla Shen. I reviewed the nurse practitioner's note and agree with the documented findings and plan of care. Lung sounds are positive for diminished breath sounds throughout the lung sharpe. The findings and the impression was discussed with the patient. I attest to the documentation by the nurse practitioner. Time with Patient: Less than 30
[2021-06-27 17:02] LABS: Glucose,Whole Blood 339 mg/dL (75-99)
--- NOTE | 2021-06-27 20:36 | P.PN ---
Subjective Progress Note Date: 06/27/21 The patient is a 50-year-old female with a PMH of hypertension, hyperlipidemia, type II DM, hypothyroidism, depression, and ADHD who had presented to the emergency room with complaints of gradually worsening shortness of breath, fever, and lethargy. The patient was diagnosed with COVID-19 and started on supplemental oxygen and admitted for further management. The patient's respiratory status initially worsened and she was started on 15 L of high flow nasal cannula oxygen. Pulmonary medicine was also consulted. The patient's oxygen requirements have gradually been decreasing. Patient seen and examined at bedside. She is very nervous about going home. She lives alone and states she is barely able to get from the bedside commode. She denies any nausea, vomiting, or diarrhea. She reports she is is no longer coughing but is still significantly short of breath. General: non toxic, no distress, appears at stated age Derm: warm, dry Head: atraumatic, normocephalic, symmetric Eyes: EOMI, no lid lag, anicteric sclera Mouth: no lip lesion, mucus membranes moist Cardiovascular: S1S2 reg, no murmur, positive posterior tibial pulse bilateral, Lungs: Course breath sounds bilateral, no rhonchi, no rales , no accessory muscle use Abdominal: soft, nontender to palpation, no guarding, no appreciable organomegaly Ext: no gross muscle atrophy, no edema, no contractures Neuro: CN II-XI grossly intact, no focal neuro deficits Psych: Alert, oriented, appears anxious and upset Acute hypoxic respiratory failure secondary to COVID-19 pneumonia -Pulmonary recommendations appreciated -Oxygen requirements gradually decreasing, currently on 4 L nasal cannula oxygen -Continue Decadron (change to oral), barcitinib -Continue vitamin C, zinc, vitamin D Diabetes mellitus type 2 with hyperglycemia secondary to steroids -A1c in March 2021 was 6.9 -Continue with Levemir and NovoLog -Anticipate back on orals at discharge Transaminitis -Likely due to COVID -Monitor for now Chronic conditions: Hypertension, hyperlipidemia, hypothyroidism -Continue with home medications DVT prophylaxis -Lovenox Discussed with: Patient Anticipated discharge date: in am Anticipated discharge place: Home Objective - Vital Signs Vital signs: Vital Signs Temp 98.9 F 06/27/21 18:34 Pulse 66 06/27/21 18:34 Resp 18 06/27/21 18:34 BP 121/65 06/27/21 18:34 Pulse Ox 94 L 06/27/21 18:34 Intake & Output 06/27/21 06/27/21 06/28/21 06:59 18:59 06:59 Other: Voiding Method Bedside Commode # Voids 2 3 - Labs CBC & Chem 7: 06/26/21 06:22 06/26/21 06:22 Labs: Abnormal Lab Results - Last 24 Hours (Table) 06/27/21 06/27/21 06/27/21 Range/Units 07:15 11:23 16:58 POC Glucose (mg/dL) 222 H 277 H 339 H (75-99) mg/dL Microbiology - Last 24 Hours (Table) 06/24/21 02:35 Blood Culture - Preliminary Blood No Growth after 72 hours 06/24/21 02:39 Blood Culture - Preliminary Blood No Growth after 72 hours 06/23/21 23:40 Blood Culture - Preliminary Blood No Growth after 72 hours
[2021-06-27 21:38] LABS: Glucose,Whole Blood 347 mg/dL (75-99)
[2021-06-27] MEDS: INSULIN DETEMIR (LEVEMIR) 100 UNIT/ML SYR SQ SCH (21:45)
[2021-06-27] MEDS: ATORVASTATIN 10 MG TAB PO SCH (21:45)
[2021-06-27] MEDS: LORATADINE 10 MG TAB PO SCH (21:45)
[2021-06-27] MEDS: ARIPiprazole 10 MG TAB PO SCH (21:45)
[2021-06-27] MEDS: LATANOPROST 0.005% OPHTH DROPS 2.5 ML BTL BOTH EYES SCH (21:46)
[2021-06-28] MEDS: LEVOTHYROXINE 75 MCG TAB PO SCH (06:09)
[2021-06-28 06:50] LABS: Glucose,Whole Blood 140 mg/dL (75-99)
[2021-06-28] MEDS: CHOLECALCIFEROL 25 MCG (1000 IU) TABLET PO SCH (07:18)
[2021-06-28] MEDS: ENOXAPARIN 40 MG/0.4 ML SYRINGE SQ SCH (07:18)
[2021-06-28] MEDS: INSULIN ASPART (NovoLOG) 100 UNIT/ML VIAL SQ SCH ×2 (07:19→07:20)
[2021-06-28] MEDS: DULoxetine HCL 30 MG CAPSULE.DR PO SCH (07:19)
[2021-06-28] MEDS: ZINC SULFATE 220 MG CAP PO SCH (07:19)
[2021-06-28] MEDS: ASCORBIC ACID 500 MG TAB PO SCH (07:19)
[2021-06-28] MEDS: PANTOPRAZOLE 40 MG TABLET PO SCH (07:19)
[2021-06-28 07:39] VITALS: BMI 32.3
[2021-06-28] MEDS: ALBUTEROL HFA INHALER INHALATION SCH (08:18)
[2021-06-28] MEDS ORDERED: dexAMETHasone 2 MG TAB PO SCH (09:00)
--- NOTE | 2021-06-28 10:13 | P.DS ---
Providers Date of admission: 06/23/21 23:23 Expected date of discharge: 06/28/21 Attending physician: Chriss Aguirre MD Consults: 06/23/21 23:18 Consult Physician Routine Consulting Provider: Alphonso Ramos Consult Reason/Comments: covidHypoxia Do you want consulting provider notified?: Yes Primary care physician: Johanna Hahn [facility] Course: Discharge Diagnosis: COVID in a non vaccinated patient Acute hypoxic respiratory failure DM 2 with hyperglycemia due to steroids Transaminitis due to steroids HTN HLD Hypothyroidims Hospital Course: The patient is a 50-year-old female with a PMH of hypertension, hyperlipidemia, type II DM, hypothyroidism, depression, and ADHD who had presented to the emergency room with complaints of gradually worsening shortness of breath, fever, and lethargy. The patient was diagnosed with COVID-19 and started on supplemental oxygen and admitted for further management. The patient's respiratory status initially worsened and she was started on 15 L of high flow nasal cannula oxygen. Pulmonary medicine was also consulted. The patient's oxygen requirements gradually decreased and she was determined stable for discharge home. Follow-up: Dr. Fall next week, Dr. Espinosa in 2 weeks, can come out of isolation on 06/30/21. Dexamethasone for 5 more days to complete 10 days, call Dr. Thorpe office if BS greater than 350. Discharged home with home O2 at 4L. CT chest showed evidence of pulmonary embolism with extensive bilateral interstitial pneumonia and mild mediastinal adenopathy Lower extremity venous Dopplers: No acute DVT. Patient seen and examined at bedside. Still wtih shortness of breath on exertion, no nausea or vomiting, no diarrhea. No chest pain. Coughing is better. Vital signs reviewed and stable. General: non toxic, no distress, appears at stated age Derm: warm, dry Head: atraumatic, normocephalic, symmetric Eyes: EOMI, no lid lag, anicteric sclera Mouth: no lip lesion, mucus membranes moist Cardiovascular: S1S2 reg, no murmur, positive posterior tibial pulse bilateral, Lungs: Coarse breath sounds bilateral, no rhonchi, no rales , no accessory muscle use Abdominal: soft, nontender to palpation, no guarding, no appreciable organomegaly Ext: no gross muscle atrophy, no edema, no contractures Neuro: CN II-XI grossly intact, no focal neuro deficits Psych: Alert, oriented, appropriate affect A total of 35 minutes of time were spent preparing this complex discharge summary . Patient Condition at Discharge: Fair Plan - Discharge Summary Discharge Rx Participant: No New Discharge Prescriptions: New dexAMETHasone ORAL [Hexadrol] 6 mg PO DAILY #15 tab Pantoprazole [Protonix] 40 mg PO AC-BRKFST #30 tab Levalbuterol Tartrate [Levalbuterol Tartrate 45 MCG Hfa] 2 puff INHALATION Q6HR #1 inch Cholecalciferol [Vitamin D3 (25 Mcg = 1000 Iu)] 100 mcg PO DAILY #30 tablet Aspirin 81 mg PO DAILY #30 tab Continue ARIPiprazole [Abilify] 10 mg PO HS glyBURIDE [Diabeta] 5 mg PO BID Latanoprost Ophth [Xalatan 0.005%] 1 drop BOTH EYES HS Loratadine 10 mg PO HS ALPRAZolam [Xanax] 0.5 mg PO DAILY PRN PRN Reason: Anxiety Dextroamphetamine/Amphetamine [Dextroamphetamine/Amphetamine ER 15 mg Cap] 15 mg PO QAM Levothyroxine Sodium [Synthroid] 75 mcg PO MOTUWETHFR metFORMIN HCL [Glucophage] 1,000 mg PO DAILY Ubidecarenone [Co Q-10] 100 mg PO DAILY Zolpidem [Ambien] 10 mg PO HS PRN PRN Reason: Insomnia Atorvastatin [Lipitor] 10 mg PO HS DULoxetine HCL [Cymbalta] 30 mg PO DAILY Discontinued Cholecalciferol [Vitamin D3 (25 Mcg = 1000 Iu)] 50 mcg PO DAILY Discharge Medication List ALPRAZolam [Xanax] 0.5 mg PO DAILY PRN 05/27/21 [History] ARIPiprazole [Abilify] 10 mg PO HS 05/27/21 [History] Dextroamphetamine/Amphetamine [Dextroamphetamine/Amphetamine ER 15 mg Cap] 15 mg PO QAM 05/27/21 [History] Latanoprost Ophth [Xalatan 0.005%] 1 drop BOTH EYES HS 05/27/21 [History] Levothyroxine Sodium [Synthroid] 75 mcg PO MOTUWETHFR 05/27/21 [History] Loratadine 10 mg PO HS 05/27/21 [History] Ubidecarenone [Co Q-10] 100 mg PO DAILY 05/27/21 [History] Zolpidem [Ambien] 10 mg PO HS PRN 05/27/21 [History] glyBURIDE [Diabeta] 5 mg PO BID 05/27/21 [History] metFORMIN HCL [Glucophage] 1,000 mg PO DAILY 05/27/21 [History] Atorvastatin [Lipitor] 10 mg PO HS 06/23/21 [History] DULoxetine HCL [Cymbalta] 30 mg PO DAILY 06/23/21 [History] Aspirin 81 mg PO DAILY #30 tab 06/28/21 [Rx] Cholecalciferol [Vitamin D3 (25 Mcg = 1000 Iu)] 100 mcg PO DAILY #30 tablet 06/28/21 [Rx] Levalbuterol Tartrate [Levalbuterol Tartrate 45 MCG Hfa] 2 puff INHALATION Q6HR #1 inch 06/28/21 [Rx] Pantoprazole [Protonix] 40 mg PO AC-BRKFST #30 tab 06/28/21 [Rx] dexAMETHasone ORAL [Hexadrol] 6 mg PO DAILY #15 tab 06/28/21 [Rx] Follow up Appointment(s)/Referral(s): Deniz Espinosa MD [STAFF PHYSICIAN] - 07/30/21 1:15 pm Nursing,[place] [NON-STAFF] - As Needed [facility] [NON-STAFF] - As Needed (oxygen ) Johanna Hahn MD [Primary Care Provider] - 1-2 days (office will call with appointment time) Patient Instructions/Handouts: Coronavirus Disease 2019 (COVID-19) Activity/Diet/Wound Care/Special Instructions: Activity: as tolerated Diet: carb consistent Special Instructions: 4L oxygen at rest and with movement Your sugars will likely run high for the next 5 days while on steroids, continue to monitor, call Dr. Hahn if BS greater than 350. Avoid simple carbs. Stay Walking Aspirin 81 mg daily. Discharge Disposition: HOME SELF-CARE
[2021-06-28 10:33] VITALS: BP 118/70; PULSE 83; RESP 17; TEMP 98.3
== END 2021-06-28 11:50 | disposition home or self-care (01) | DRG 177 ==
LOC: EC 18:50 → 4SSUR 23:23
PROVIDERS: ADMIT Internal Medicine; ATTEND Internal Medicine
PROC: 8E0ZXY6 Isolation (ICD-10-PCS; principal; 2021-06-23)
PROC: XW0DXM6 Introduction of Baricitinib into Mouth and Pharynx, External Approach, New Technology Group 6 (ICD-10-PCS; 2021-06-24)
DX: U07.1 COVID-19 (principal); I26.99 Other pulmonary embolism without acute cor pulmonale; J12.82 Pneumonia due to coronavirus disease 2019; J96.01 Acute respiratory failure with hypoxia; Z78.9 Other specified health status; Z79.4 Long term (current) use of insulin; Z79.84 Long term (current) use of oral hypoglycemic drugs; Z79.890 Hormone replacement therapy; T38.0X5A Adverse effect of glucocorticoids and synthetic analogues, initial encounter; Z87.891 Personal history of nicotine dependence; Z79.899 Other long term (current) drug therapy; E03.9 Hypothyroidism, unspecified; E11.65 Type 2 diabetes mellitus with hyperglycemia; E78.5 Hyperlipidemia, unspecified; F90.9 Attention-deficit hyperactivity disorder, unspecified type; I10 Essential (primary) hypertension; R53.81 Other malaise; R74.01 Elevation of levels of liver transaminase levels; R74.8 Abnormal levels of other serum enzymes; R79.82 Elevated C-reactive protein (CRP); N83.209 Unspecified ovarian cyst, unspecified side; J45.30 Mild persistent asthma, uncomplicated
CPT/HCPCS: 36410; 71045; 71046; 71275; 76937; 80053; 82728; 83615; 83735; 84145; 84484; 85025; 85379; 85610; 85730; 86140; 87040; 93005; 93970; 94640; 94760; 96361; 96372; 96374; 96375; 99291

== ENCOUNTER → 2022-07-04 | Outpatient (CLI) | payer BC ==
--- NOTE | 2022-07-07 11:21 | MM ---
Reason for Exam: Screening (asymptomatic). Last mammogram was performed 2 year(s) and 0 month(s) ago. Patient History: Menarche at age 9. First Full-Term at age 19. Right ovary removed at age 28. Postmenopausal. Hormonal Contraceptives for 1 year from age 18 until age 19. Risk Values: Cecily 5 year model risk: 1.5%. NCI Lifetime model risk: 6.6%. Prior Study Comparison: 04/10/2011 Bilateral Screening Mammogram, [facility]. 04/17/2011 Right Diagnostic Mammogram, [facility]. 07/18/2020 Bilateral Screening Mammogram, [facility]. Tissue Density: The breast tissue is heterogeneously dense. This may lower the sensitivity of mammography. Findings: Analyzed By CAD. A few scattered benign-appearing patient throughout the left breast are redemonstrated. Benign-appearing bilateral axillary lymph nodes redemonstrated. There is no suspicious new group of microcalcifications or new suspicious mass in either breast. Overall Assessment: Benign, BI-RAD 2 Management: Screening Mammogram of both breasts in 1 year. A clinical breast exam by your physician is recommended on an annual basis and results should be correlated with mammographic findings. Electronically signed and approved by: Herbert Swan M.D.
== END | disposition home or self-care (01) ==
LOC: RADMAMWWP 13:43
PROVIDERS: ATTEND Family Medicine
DX: Z12.31 Encounter for screening mammogram for malignant neoplasm of breast (principal); Z78.0 Asymptomatic menopausal state; Z90.721 Acquired absence of ovaries, unilateral
CPT/HCPCS: 77067

== ENCOUNTER → 2023-03-19 | Outpatient (CLI) | payer BC ==
--- NOTE | 2023-03-19 08:48 | US ---
EXAMINATION TYPE: US abdomen complete DATE OF EXAM: 03/19/2023 COMPARISON: NONE CLINICAL INDICATION: Female, 62 years old with history of R31.0 GROSS HEMATURIA; 2 episodes of gross hematuria 1 month ago TECHNIQUE: Multiple sonographic images of the abdomen are obtained. FINDINGS: EXAM MEASUREMENTS: Liver Length: 17.5 cm Gallbladder Wall: 0.2 cm CBD: 0.5 cm Spleen: 8.9 cm Right Kidney: 10.9x4.0x3.8 cm Left Kidney: 12.2x4.4x4.4 cm IRON HANDLER NOTES: Pancreas: partially Obscured by bowel gas Liver: enlarged and echogenic Gallbladder: wnl Evidence for sonographic Warren's sign: No CBD: wnl Spleen: wnl Right Kidney: wnl Left Kidney: wnl Upper IVC: wnl Abd Aorta: wnl The intrahepatic portion of the IVC and proximal abdominal aorta are within normal limits. There is no evidence of cholelithiasis. Common bile duct is unremarkable. The visualized portions of the cintron creas are homogenous. The spleen is unremarkable. Kidneys are symmetric and free of hydronephrosis. No renal lesions are seen. IMPRESSION: Hepatomegaly with underlying hepatic steatosis suggested. Correlate with hepatic function testing.
--- NOTE | 2023-03-19 08:51 | US ---
EXAMINATION TYPE: US pelvic complete DATE OF EXAM: 03/19/2023 COMPARISON: NONE CLINICAL INDICATION: Female, 62 years old with history of R31.0 GROSS HEMATURIA; 2 episodes of gross hematuria 1 month ago. hx of rt ovarian cystectomy and oophorectomy TECHNIQUE: . Transabdominal sonographic images of the pelvis were acquired. Date of LMP: post-feroz EXAM MEASUREMENTS: Uterus: 6.7x2.7x4.8 cm Endometrial Stripe: 1.1 cm Right Ovary: Surgically absent cm Left Ovary: 2.4x1.4x1.3 cm 1. Uterus: Anteverted wnl 2. Endometrium: thickened and heterogenous with cystic areas noted within 3. Right Ovary: Surgically absent 4. Left Ovary: wnl 5. Bilateral Adnexa: Obscured by overlying bowel gas 6. Posterior cul-de-sac: wnl IMPRESSION: Nonspecific thickening and heterogeneity of the endometrium with a couple of cystic areas noted. Cons ider direct visualization.
== END | disposition home or self-care (01) ==
LOC: RADUSWWP 07:36
PROVIDERS: ATTEND Family Medicine
DX: N85.8 Other specified noninflammatory disorders of uterus (principal); R16.0 Hepatomegaly, not elsewhere classified; R31.0 Gross hematuria; Z90.721 Acquired absence of ovaries, unilateral
CPT/HCPCS: 76700; 76856

== ENCOUNTER → 2023-03-30 | Outpatient (CLI) | payer BC ==
[2023-03-30 10:12] LABS: African American GFR (CKD) >90 (>60 ml/min/1.73 sqM); Blood Urea Nitrogen 14 mg/dL (7-17); Non-African American GFR(CKD) >90 (>60 ml/min/1.73 sqM)
--- NOTE | 2023-04-01 07:25 | CT ---
EXAMINATION TYPE: CT urogram wo/w con DATE OF EXAM: 03/30/2023 COMPARISON: None HISTORY: Gross hematuria x1 month ago. CT DLP: 1996 mGycm Automated exposure control for dose reduction was used. Contrast: None Technique: Axial images 3 and 5 mm thick sections. Study is performed without and with intravenous co ntrast. Delayed images were obtained. Three-D reconstructed images performed on a separate computer b y the technologist are reviewed. FINDINGS: Limited CT sections were obtained through the lung bases. Minimal infiltrate may be within the anteri or right middle lobe at the lung base. Lung bases are otherwise clear. CT ABDOMEN: Liver and spleen of normal density without discrete masses or cysts. The pancreas is norm al. Gallbladder is unremarkable. Loops of bowel within the abdomen and pelvis appear unremarkable. Ad renal glands are normal. CT PELVIS: Loops of bowel within the pelvis appear unremarkable. The appendix is not identified. No s uspicious dilated tubular structure inflammatory changes in. Urinary bladder is unremarkable. Uterus and adnexa are normal. Osseous structures appear without suspicious lytic or sclerotic lesions. Urogram: Three-D reconstructed images are performed through the renal collecting systems. Renal calyc es infundibula and renal pelves appear unremarkable. Right ureter follows a normal caliber course and contour to the pelvis. Pelvic ureters not well visualized on the right. There may be attempted dupli cation of the left renal pelvis. There is a common ureter from the left renal pelvis to the urinary b ladder are visualized on the delayed images. No intraluminal or extramural defects are evident. Contr ast portion of the urinary bladder appears grossly normal. IMPRESSION: 1. NO SUSPICIOUS ABNORMALITIES TO ACCOUNT FOR GROSS HEMATURIA. 2. DUPLICATION OF THE LEFT RENAL PELVES UPPER AND LOWER POLE DRAINAGE TO A COMMON URETER. 3. NONVISUALIZATION OF THE DISTAL RIGHT PELVIC URETER DURING THIS EXAM
== END | disposition home or self-care (01) ==
LOC: RADCTMAIN 09:28
PROVIDERS: ATTEND Family Medicine
DX: R31.0 Gross hematuria (principal)
CPT/HCPCS: 82565; 84520; 74178; 36415; 74400; Q9967

== ENCOUNTER → 2023-05-06 | Outpatient (CLI) | payer BC ==
[2023-05-06 16:31] LABS: Basophils # (A) 0.06 X 10*3/uL (0.00-0.10); Basophils % (A) 0.5 %; Eosinophils # (A) 1.08 X 10*3/uL (0.04-0.35); HCT 40.8 % (37.2-46.3); HGB 12.6 d/dL (12.0-15.0); Lymphocytes # (A) 4.09 X 10*3/uL (0.90-5.00); MCH 28.6 pg (27.0-32.0); MCHC 30.9 d/dL (32.0-37.0); MCV 92.7 FL (80.0-97.0); Mean Platelet Volume 9.3 FL (9.5-12.2); Monocytes # (A) 0.72 X 10*3/uL (0.20-1.00); NRBC Per 100 WBC 0 X 10*3/uL (0.00-0.01); Neutrophils # (A) 6.03 X 10*3/uL (1.80-7.70); Neutrophils % (A) 50.2 %; Platelet Count 398 X 10*3/uL (140-440); RDW 13.1 % (11.5-14.5); WBC 12.02 X 10*3/uL (4.50-10.00)
[2023-05-06 18:05] LABS: ALT 21 U/L (8-44); AST 25 U/L (13-35); Albumin 4.6 d/dL (3.8-4.9); Alkaline Phosphatase 103 U/L (41-126); BUN/Creat Ratio 23.71 Ratio (12.00-20.00); Blood Urea Nitrogen 16.6 mg/dL (9.0-27.0); Carbon Dioxide 27.1 mmol/L (21.6-31.8); Chloride 104 mmol/L (96-109); Chol/HDL Ratio 2.59 Ratio; Glucose 113 mg/dL (70-110); LDL Cholesterol,Calculated 63.8 mg/dL (0.0-131.0); Potassium 4.8 mmol/L (3.5-5.5); Sodium 141 mmol/L (135-145); Total Bilirubin <0.2 mg/dL (0.3-1.2); Total Protein 6.6 d/dL (6.2-8.2)
[2023-05-06 18:06] LABS: Microalbumin Creatinine Ratio <22 mg/g Cr (0-30); Urine Creatinine 55.4 mg/dL (28.0-217.0)
== END | disposition home or self-care (01) ==
LOC: LABWHC1 09:16
PROVIDERS: ATTEND Family Medicine
DX: Z00.00 Encounter for general adult medical examination without abnormal findings (principal); I10 Essential (primary) hypertension; E78.5 Hyperlipidemia, unspecified; E11.9 Type 2 diabetes mellitus without complications
CPT/HCPCS: 36415; 80053; 80061; 82043; 82570; 83036; 85025

== ENCOUNTER → 2023-09-02 | Outpatient (CLI) | payer BC ==
--- NOTE | 2023-09-03 15:03 | MM ---
Reason for Exam: Screening (asymptomatic). Last mammogram was performed 1 year(s) and 2 month(s) ago. Patient History: Menarche at age 9. First Full-Term at age 19. Right ovary removed at age 28. Postmenopausal. Hormonal Contraceptives for 1 year from age 18 until age 19. Risk Values: Cecily 5 year model risk: 1.6%. NCI Lifetime model risk: 6.4%. Prior Study Comparison: 04/17/2011 Right Diagnostic Mammogram, [facility]. 07/18/2020 Bilateral Screening Mammogram, [facility]. 07/04/2022 Bilateral MG screening mammo w CAD, [facility]. Tissue Density: There are scattered fibroglandular densities. Findings: Analyzed By CAD. There is no suspicious group of microcalcifications or new suspicious mass. Overall Assessment: Negative, BI-RAD 1 Management: Screening Mammogram of both breasts in [address] [facility] will attempt to contact patient to return for supplemental views and ultrasound if indicated. Patient should continue monthly self-breast exams. A clinical breast exam by your physician is recommended on an annual basis. This exam should not preclude additional follow-up of suspicious palpable abnormalities. Note on Cecily scores and lifetime risk: 1. A Cecily score greater than 3% is considered moderate risk. If this is the case, consider specialist referral to assess eligibility for a risk reducing agent. 2. If overall lifetime risk for the development of breast cancer is 20% or higher, the patient may qualify for future screening with alternating mammogram and breast MRI. Electronically signed and approved by: Manjeet Stevens DO
== END | disposition home or self-care (01) ==
LOC: RADMAMWWP 11:01
PROVIDERS: ATTEND Family Medicine
DX: Z12.31 Encounter for screening mammogram for malignant neoplasm of breast (principal); Z78.0 Asymptomatic menopausal state
CPT/HCPCS: 77063; 77067

== ENCOUNTER → 2024-09-06 | Outpatient (CLI) | payer MEDICARE ==
--- NOTE | 2024-09-06 08:49 | MM ---
Reason for Exam: Screening (asymptomatic). Last screening mammogram was performed 12 month(s) ago. Patient History: Menarche at age 9. First Full-Term at age 19. Right ovary removed at age 28. Postmenopausal. Hormonal Contraceptives for 1 year from age 18 until age 19. Risk Values: Cecily 5 year model risk: 1.6%. NCI Lifetime model risk: 6.2%. Prior Study Comparison: 07/18/2020 Bilateral Screening Mammogram, [facility]. 07/04/2022 Bilateral MG screening mammo w CAD, [facility]. 09/02/2023 Bilateral MG 3D screening mammo w/cad, [facility]. Tissue Density: There are scattered areas of fibroglandular density. Findings: Analyzed By CAD. Right breast: There is no suspicious group of microcalcifications or new suspicious mass. Left breast: There is no suspicious group of microcalcifications or new suspicious mass. Overall Assessment: Negative, BI-RAD 1 Management: Screening Mammogram of both breasts in [address] [facility] will attempt to contact patient to return for supplemental views and ultrasound if indicated. Patient should continue monthly self-breast exams. A clinical breast exam by your physician is recommended on an annual basis. This exam should not preclude additional follow-up of suspicious palpable abnormalities. Note on Cecily scores and lifetime risk: 1. A Cecily score greater than 3% is considered moderate risk. If this is the case, consider specialist referral to assess eligibility for a risk reducing agent. 2. If overall lifetime risk for the development of breast cancer is 20% or higher, the patient may qualify for future screening with alternating mammogram and breast MRI. [facility], , 09/06/2024 8:45 AM. Electronically signed and approved by: Manjeet Stevens DO
== END | disposition home or self-care (01) ==
LOC: RADMAMWWP 06:57
PROVIDERS: ATTEND Family Medicine
DX: Z12.31 Encounter for screening mammogram for malignant neoplasm of breast (principal); Z90.721 Acquired absence of ovaries, unilateral; Z78.0 Asymptomatic menopausal state; R92.323 Mammographic fibroglandular density, bilateral breasts
CPT/HCPCS: 77063; 77067